=== PATIENT | female | born 1965 | race Caucasian/White ===

== ENCOUNTER → 2016-11-27 | Outpatient (CLI) | payer BC ==
--- NOTE | 2016-11-27 13:43 | RAD ---
HISTORY: Right knee pain. Complete three view series of the right knee joint. Comparisons: none. Findings: Examination of the right knee demonstrate no evidence for acute fracture, subluxation, or dislocation . The medial and lateral tibiofemoral compartments demonstrate mild joint space narrowing and margin al osteophyte formation. The findings are compatible with mild degenerative joint disease. The late ral radiograph fails to demonstrate significant joint effusion. Patellofemoral compartment shows mil d DJD and mild chondromalacia patella. IMPRESSION: Mild tricompartmental knee joint osteoarthritis, worse medially. Reported By:
== END | disposition home or self-care (01) | DRG 556 ==
LOC: RAD 09:41
PROVIDERS: ATTEND Nurse Practitioner Family
DX: M25.561 Pain in right knee (principal); M17.11 Unilateral primary osteoarthritis, right knee
CPT/HCPCS: 73564

== ENCOUNTER → 2016-12-09 | Outpatient (CLI) | payer BC ==
--- NOTE | 2016-12-10 08:09 | MRI ---
MRI right knee without contrast Indication: Right knee pain with limited range of motion Technique: Multisequence, multiplanar MR images of the right knee were obtained without IV contrast. Comparison: Radiograph November 27, 2016 Findings: Marrow signal is normal. No acute fracture or malalignment is identified. Small partial thi ckness cartilage fissures are scattered throughout the medial femorotibial compartment. The articular cartilage of the lateral femorotibial and patellofemoral compartments is intact without significant chondromalacia. No full-thickness cartilage defects are identified. There is a moderate sized suprapa tellar joint effusion. No loose intra-articular bodies or significant popliteal fossa cyst is identif ied. The anterior horn of the lateral meniscus is blunted and small in size, compatible with tear. There i s a large, posteriorly displaced meniscal fragment adjacent to the posterior root of the lateral meni scus (coronal image 23, series 701). The medial meniscus is intact. The ACL is intact but demonstrates moderate intermediate intrasubstance signal, compatible with mucoi d degeneration. There is a ganglion cyst associated with the proximal PCL, which is intact. The MCL, FCL, remaining posterior lateral ligamentous complex and extensor mechanism are unremarkable. Impression: 1. Horizontal cleavage tear of the anterior horn lateral meniscus with large, posteriorly displaced m eniscal fragment adjacent to the posterior root, as detailed above. 2. Moderate sized, likely reactive joint effusion. 3. Mild medial femorotibial compartment chondromalacia. 4. Mucoid ACL. Reported By:
== END | disposition home or self-care (01) | DRG 554 ==
LOC: RAD 15:06
PROVIDERS: ATTEND Nurse Practitioner Family
DX: M17.11 Unilateral primary osteoarthritis, right knee (principal); S83.281A Other tear of lateral meniscus, current injury, right knee, initial encounter; X58.XXXA Exposure to other specified factors, initial encounter; S83.512A Sprain of anterior cruciate ligament of left knee, initial encounter; M94.261 Chondromalacia, right knee
CPT/HCPCS: 73721

== ENCOUNTER 2019-12-24 19:56 | Inpatient (IN) ==
[2019-12-24] MEDS ORDERED: TUSSIONEX PENNKINETIC SUSP PO PRN (20:09)
[2019-12-24] MEDS: DUONEB 0.5 MG/3 MG (3 mL) NEB SCH (21:30)
[2019-12-24] MEDS: PULMICORT NEB TX 0.5 MG NEB SCH (21:30)
[2019-12-24] MEDS ORDERED: REMDESIVIR (INVESTIGATIONAL DRUG GS-5734) 200 MG in NS 250 ML IV 250 ML IV SCH (22:00)
[2019-12-24 22:06] LABS: BASOPHILS % (AUTO) 0.3 % (0.2-1.0); HEMATOCRIT 40.1 % (36.0-47.0); HEMOGLOBIN 13.7 g/dL (12.0-16.0); LYMPHOCYTES # (AUTO) 0.6 X10^3/uL (1.3-2.9); LYMPHOCYTES % (AUTO) 13.1 % (21.0-51.0); MEAN CORPUSCULAR HEMOGLOBIN 29.8 pg (27.0-34.0); MEAN CORPUSCULAR HGB CONC 34.1 g/dL (33.0-35.0); MEAN CORPUSCULAR VOLUME 87.4 fL (80.0-100.0); MEAN PLATELET VOLUME 8.9 fL (7.4-11.0); MONOCYTES # (AUTO) 0.1 x10^3/uL (0.3-0.8); MONOCYTES % (AUTO) 2.6 % (0.0-13.0); NEUTROPHILS # (AUTO) 3.9 x10^3/uL (2.2-4.8); PLATELET COUNT 196 X10^3/uL (150.0-450.0); RED BLOOD COUNT 4.59 X10^6/uL (3.5-5.4); RED CELL DISTRIBUTION WIDTH 14.6 % (11.6-16.5); WHITE BLOOD COUNT 4.7 X10^3/uL (3.6-10.0)
[2019-12-24 22:22] LABS: ALANINE AMINOTRANSFERASE 79 Units/L (12-78); ALBUMIN 3.4 g/dL (3.4-5.0); ALKALINE PHOSPHATASE 90 Units/L (46-116); ASPARTATE AMINO TRANSFERASE 23 Units/L (15-37); BLOOD UREA NITROGEN 15 mg/dL (7-18); CALCIUM 8.9 mg/dL (8.5-10.1); CARBON DIOXIDE 26.6 mmol/L (21-32); CHLORIDE 97 mmol/L (98-107); COR NA(FOR HYPERGLY) 140 mmol/L (136-145); CREATININE 0.93 mg/dL (0.55-1.02); SODIUM 135 mmol/L (136-145); TOTAL PROTEIN 8.1 g/dL (6.4-8.2); eGFR NON BLACK RACES > 60 (>60)
[2019-12-24] MEDS ORDERED: NS 1/2 1000 ML IV 1,000 ML IV ONE (23:10)
[2019-12-24] MEDS: NS 1/2 1000 ML IV 1,000 ML IV SCH (23:15)
[2019-12-24] MEDS: PROTONIX INJ 40 MG VIAL IVP SCH (23:15)
[2019-12-24] MEDS: VSL#3 PO SCH (23:15)
[2019-12-24] MEDS: ROBITUSSIN DM PO SCH (23:16)
[2019-12-24] MEDS: TUSSIONEX PENNKINETIC SUSP PO SCH (23:18)
[2019-12-24] MEDS: TESSALON PERLES PO SCH (23:19)
[2019-12-24] MEDS: SOLU-Medrol 40 MG VIAL IVP SCH (23:19)
[2019-12-25] MEDS: LEVAQUIN PREMIX IV 750 MG 750 MG/150 ML BAG IV SCH ×2 (00:12→22:30)
[2019-12-25] MEDS ORDERED: POTASSIUM CHLORIDE LIQ 20 MEQ UDC PO PRN (00:44)
[2019-12-25] MEDS ORDERED: POTASSIUM CHL 60 MEQ/NS 0.45% 500 ML IV PRN (00:44)
[2019-12-25] MEDS ORDERED: POTASSIUM CHL 40 MEQ/NS 0.45% 500 ML IV PRN (00:44)
[2019-12-25] MEDS ORDERED: K-RIDER 10 MEQ/NS 100 ML 10 MEQ/100 ML BAG IV PRN (00:44)
[2019-12-25 05:42] LABS: ABG BASE EXCESS 6.1 mmol/L (-2.0-2.0)
[2019-12-25 05:43] LABS: ABG ALLEN TEST POS; ABG HCO3 31.2 mmol/L (22-26)
[2019-12-25 06:15] LABS: BASOPHILS % (AUTO) 0.2 % (0.2-1.0); HEMOGLOBIN 12.5 g/dL (12.0-16.0); LYMPHOCYTES # (AUTO) 0.6 X10^3/uL (1.3-2.9); LYMPHOCYTES % (AUTO) 12.5 % (21.0-51.0); MEAN CORPUSCULAR HEMOGLOBIN 29.2 pg (27.0-34.0); MEAN CORPUSCULAR HGB CONC 32.9 g/dL (33.0-35.0); MEAN CORPUSCULAR VOLUME 88.7 fL (80.0-100.0); MEAN PLATELET VOLUME 9.5 fL (7.4-11.0); MONOCYTES # (AUTO) 0.1 x10^3/uL (0.3-0.8); MONOCYTES % (AUTO) 2.3 % (0.0-13.0); PLATELET COUNT 179 X10^3/uL (150.0-450.0); RED BLOOD COUNT 4.28 X10^6/uL (3.5-5.4); RED CELL DISTRIBUTION WIDTH 14.5 % (11.6-16.5); WHITE BLOOD COUNT 4.7 X10^3/uL (3.6-10.0)
[2019-12-25] MEDS: TESSALON PERLES PO SCH ×3 (06:28→22:30)
[2019-12-25] MEDS: SOLU-Medrol 40 MG VIAL IVP SCH ×3 (06:28→22:29)
[2019-12-25 06:43] LABS: ALANINE AMINOTRANSFERASE 71 Units/L (12-78); ALBUMIN 3.1 g/dL (3.4-5.0); ALKALINE PHOSPHATASE 80 Units/L (46-116); ASPARTATE AMINO TRANSFERASE 17 Units/L (15-37); BLOOD UREA NITROGEN 13 mg/dL (7-18); CALCIUM 8.8 mg/dL (8.5-10.1); CHLORIDE 99 mmol/L (98-107); COR CA(FOR HYPOALB) 9.5 mg/dL (8.5-10.1); COR NA(FOR HYPERGLY) 141 mmol/L (136-145); CREATININE 0.68 mg/dL (0.55-1.02); SODIUM 137 mmol/L (136-145); TOTAL PROTEIN 7.5 g/dL (6.4-8.2); eGFR NON BLACK RACES > 60 (>60)
--- NOTE | 2019-12-25 06:45 | RAD ---
HISTORYSOB, CovidSTUDYPortable AP [id number] heart size. Minimal basal infiltrates, left greater than right, again noted. No new consolidation, edema or pneumothorax seen.IMPRESSIONNo change. Basal infiltrates consistent with atypical pneumonia.Electronically signed by: IKER MONTOYA (Dec 25, 2019 06:45:10)
[2019-12-25] MEDS ORDERED: XANAX PO PRN (08:47)
[2019-12-25] MEDS ORDERED: ASPIRIN EC 81 MG PO SCH (09:00)
[2019-12-25] MEDS: DUONEB 0.5 MG/3 MG (3 mL) NEB SCH ×4 (09:20→21:01)
[2019-12-25] MEDS: PULMICORT NEB TX 0.5 MG NEB SCH ×2 (09:20→20:59)
[2019-12-25] MEDS: TOPROL XL PO SCH ×2 (09:44→21:00)
[2019-12-25] MEDS: ZYLOPRIM PO SCH (09:44)
[2019-12-25] MEDS: ROBITUSSIN DM PO SCH ×4 (09:44→20:58)
[2019-12-25] MEDS: PROTONIX INJ 40 MG VIAL IVP SCH ×2 (09:44→20:58)
[2019-12-25] MEDS: VSL#3 PO SCH (09:45)
[2019-12-25] MEDS: MICRO K EXTEN CAP 10 MEQ PO PRN (09:45)
[2019-12-25] MEDS: TUSSIONEX PENNKINETIC SUSP PO SCH ×2 (09:47→21:00)
[2019-12-25] MEDS: HYZAAR 50/12.5 MG PO SCH ×2 (09:56→20:56)
[2019-12-25] MEDS: OLOPATADINE SCH ×2 (10:55→20:57)
--- NOTE | 2019-12-25 11:18 | PCM.PROG ---
Progress Note Progress Note for Day of Date of Exam: 12/25/19 Subjective Subjective: Patient seen at bedside, reports doing better. No overnight events. She is currently on 2L NC and states her breathing is better. She is currently admitted for COVID-19 infection associated with acute respiratory failure. She denies fever or chills, no N/V/D or abdominal pain. She has been ambulating to the bathroom. Labs: Hgb 12.5 K:3.4 BUN/Cr: 13/0.68 Glucose: 285 AST/ALT: 17/ AB.44/46/110/31 CRP: 62 CXR: basal infiltrates concerning for atypical pna Plan: continue current treatment with solumedrol, Remdesivir and Levaquin. Will resume home medications, replace K as per protocol. Patient will be getting plasma this morning. Continue gentle hydration. Will add SSI coverage for hyperglycemia. Continue pulmonary toilet with IS, duonebs and pulmicort. Monitor AM labs. Past Medical Family Social History Past Med/Fam/Surg Hx: No changes since H&P Allergies: Allergies Penicillins Allergy (Verified 12/24/19 21:21) Review of Systems ROS: No change since H&P Vital Signs and I&O's Vital Signs: Temperature 98.0 F Pulse Rate 83 Respiratory Rate 18 Blood Pressure 126/72 O2 Sat by Pulse Oximetry 100 Intake and Output: Intake & Output 12/22/19 12/23/19 12/24/19 12/25/19 23:59 23:59 23:59 23:59 Intake Total 462 / 462 768 / 768 Output Total 0 / 0 Balance 462 / 462 768 / 768 Physical Exam Oriented: Normal Eyes: Normal Ear: Normal Nose: Normal Respiratory: Generalized and Diminished Cardiovascular: Normal Auscultation: Bowel Sounds: Normal Palpation: Normal Tenderness: Normal Skin: Normal Musculoskeletal: Normal Psychiatric: Normal Mood Description: Calm Affect: Normal Speech Pattern: Clear and Appropriate Laboratory and Diagnostics Result Diagrams: 12/25/19 04:40 12/25/19 04:40 Labs: Laboratory WBC 4.7 X10^3/uL (3.6-10.0) 12/25/19 04:40 RBC 4.28 X10^6/uL (3.5-5.4) 12/25/19 04:40 Hgb 12.5 g/dL (12.0-16.0) 12/25/19 04:40 Hct 38.0 % (36.0-47.0) 12/25/19 04:40 MCV 88.7 fL (80.0-100.0) 12/25/19 04:40 MCH 29.2 pg (27.0-34.0) 12/25/19 04:40 MCHC 32.9 g/dL (33.0-35.0) L 12/25/19 04:40 RDW 14.5 % (11.6-16.5) 12/25/19 04:40 Plt Count 179 X10^3/uL (150.0-450.0) 12/25/19 04:40 MPV 9.5 fL (7.4-11.0) 12/25/19 04:40 Neut % (Auto) 85.0 % (42.0-75.0) H 12/25/19 04:40 Lymph % (Auto) 12.5 % (21.0-51.0) L 12/25/19 04:40 [place] % (Auto) 2.3 % (0.0-13.0) 12/25/19 04:40 Eos % (Auto) 0.0 % (0.9-2.9) L 12/25/19 04:40 Baso % (Auto) 0.2 % (0.2-1.0) 12/25/19 04:40 Neut # (Auto) 4.0 x10^3/uL (2.2-4.8) 12/25/19 04:40 Lymph # (Auto) 0.6 X10^3/uL (1.3-2.9) L 12/25/19 04:40 [place] # (Auto) 0.1 x10^3/uL (0.3-0.8) L 12/25/19 04:40 Eos # (Auto) 0.0 x10^3/uL (0.0-0.2) 12/25/19 04:40 Baso # (Auto) 0.0 X10^3/uL (0.0-0.1) 12/25/19 04:40 Absolute Nucleated RBC 0.1 /100WBC 12/25/19 04:40 Sample Site Lr 12/25/19 05:35 ABG pH 7.440 (7.35-7.45) 12/25/19 05:35 ABG pCO2 46.0 mmHg (35.0-45.0) H 12/25/19 05:35 ABG pO2 111.0 mmHg (80.0-100.0) H 12/25/19 05:35 ABG HCO3 31.2 mmol/L (22-26) H* 12/25/19 05:35 ABG O2 Saturation 99.0 % (90-100) 12/25/19 05:35 ABG Base Excess 6.1 mmol/L (-2.0-2.0) H 12/25/19 05:35 Fausto Test Pos 12/25/19 05:35 A-a Gradient 31.0 mmHg 12/25/19 05:35 FiO2 28.0 12/25/19 05:35 Blood Gas Comments Pt [facility] 12/25/19 05:35 Sodium 137 mmol/L (136-145) 12/25/19 04:40 Corrected Sodium 141 mmol/L (136-145) 12/25/19 04:40 Potassium 3.4 mmol/L (3.5-5.1) L 12/25/19 04:40 Chloride 99 mmol/L (98-107) 12/25/19 04:40 Carbon Dioxide 27.0 mmol/L (21-32) 12/25/19 04:40 BUN 13 mg/dL (7-18) 12/25/19 04:40 Creatinine 0.68 mg/dL (0.55-1.02) 12/25/19 04:40 Est GFR (MDRD) Af Amer > 60 (>60) 12/25/19 04:40 Est GFR (MDRD) Non-Af > 60 (>60) 12/25/19 04:40 Glucose 285 mg/dL (65-99) H 12/25/19 04:40 Calcium 8.8 mg/dL (8.5-10.1) 12/25/19 04:40 Corrected Calcium 9.5 mg/dL (8.5-10.1) 12/25/19 04:40 Magnesium 2.2 mg/dL (1.7-2.9) 12/24/19 21:42 Ferritin 208 ng/mL (8-252) 12/25/19 04:40 Total Bilirubin 0.40 mg/dL (0.2-1.0) 12/25/19 04:40 AST 17 Units/L (15-37) 12/25/19 04:40 ALT 71 Units/L (12-78) 12/25/19 04:40 Alkaline Phosphatase 80 Units/L (46-116) 12/25/19 04:40 C-Reactive Protein 62.60 mg/L (0-3.0) H 12/25/19 04:40 Total Protein 7.5 g/dL (6.4-8.2) 12/25/19 04:40 Albumin 3.1 g/dL (3.4-5.0) L 12/25/19 04:40 Globulin 4.4 g/dL (2.5-4.5) 12/25/19 04:40 Albumin/Globulin Ratio 0.7 Ratio (1.1-2.1) L 12/25/19 04:40 Blood Type O POSITIVE 12/24/19 21:42 Plan (1) COVID-19: Status: Acute (2) Acute respiratory failure due to COVID-19: Status: Acute (3) Hypokalemia: Status: Acute (4) HTN (hypertension): Status: Acute Qualifiers: Hypertension type: essential hypertension Qualified Code(s): I10 - Essential (primary) hypertension (5) Hyperglycemia: Status: Acute
[2019-12-25] MEDS: HumuLIN R SC PRN ×2 (13:00→21:01)
[2019-12-25] MEDS ORDERED: NS 250 ML IV 250 ML IV ONE ×2 (15:15→18:08)
[2019-12-25] MEDS: NS 1/2 1000 ML IV 1,000 ML IV SCH (19:56)
[2019-12-25] MEDS ORDERED: NS 1/2 1000 ML IV 1,000 ML IV ONE (20:45)
[2019-12-26 05:09] LABS: BASOPHILS % (AUTO) 0.2 % (0.2-1.0); HEMATOCRIT 38.3 % (36.0-47.0); HEMOGLOBIN 12.8 g/dL (12.0-16.0); LYMPHOCYTES # (AUTO) 0.7 X10^3/uL (1.3-2.9); LYMPHOCYTES % (AUTO) 5.8 % (21.0-51.0); MEAN CORPUSCULAR HEMOGLOBIN 29.4 pg (27.0-34.0); MEAN CORPUSCULAR HGB CONC 33.4 g/dL (33.0-35.0); MEAN CORPUSCULAR VOLUME 87.9 fL (80.0-100.0); MEAN PLATELET VOLUME 8.8 fL (7.4-11.0); MONOCYTES # (AUTO) 0.3 x10^3/uL (0.3-0.8); MONOCYTES % (AUTO) 2.8 % (0.0-13.0); NEUTROPHILS # (AUTO) 10.9 x10^3/uL (2.2-4.8); NEUTROPHILS % (AUTO) 91.2 % (42.0-75.0); PLATELET COUNT 226 X10^3/uL (150.0-450.0); RED BLOOD COUNT 4.36 X10^6/uL (3.5-5.4); RED CELL DISTRIBUTION WIDTH 14.7 % (11.6-16.5); WHITE BLOOD COUNT 11.9 X10^3/uL (3.6-10.0)
[2019-12-26 05:31] LABS: ALANINE AMINOTRANSFERASE 52 Units/L (12-78); ALBUMIN 3.1 g/dL (3.4-5.0); ALKALINE PHOSPHATASE 76 Units/L (46-116); ASPARTATE AMINO TRANSFERASE 14 Units/L (15-37); BLOOD UREA NITROGEN 11 mg/dL (7-18); CALCIUM 8.8 mg/dL (8.5-10.1); CHLORIDE 98 mmol/L (98-107); COR CA(FOR HYPOALB) 9.5 mg/dL (8.5-10.1); COR NA(FOR HYPERGLY) 139 mmol/L (136-145); SODIUM 137 mmol/L (136-145); TOTAL PROTEIN 7.6 g/dL (6.4-8.2); eGFR NON BLACK RACES > 60 (>60)
[2019-12-26] MEDS: TESSALON PERLES PO SCH ×3 (06:31→21:50)
[2019-12-26] MEDS: SOLU-Medrol 40 MG VIAL IVP SCH ×3 (06:31→21:49)
[2019-12-26] MEDS: NS 1/2 1000 ML IV 1,000 ML IV SCH ×3 (06:31→16:20)
[2019-12-26] MEDS: K-DUR TAB 20 MEQ PO PRN (06:33)
--- NOTE | 2019-12-26 06:48 | RAD ---
HISTORYSOBSTUDYCHEST, 1 [id number] trachea is midline. The cardiac silhouette is mildly enlarged.. The left lung is clear. There is artifact overlying the right cecilia thorax. No pleural effusion or pneumothorax.. The bony thorax is unremarkable.IMPRESSIONLimited radiographic evaluation of the chest. No significant change from previous 12/25/2019Electronically signed by: Domingo Tong (Dec 26, 2019 06:48:22)
[2019-12-26 07:18] LABS: BAND NEUTROPHILS % 3 % (0-10); PLATELET MORPHOLOGY COMMENT NORMAL (NORMAL)
[2019-12-26] MEDS: PULMICORT NEB TX 0.5 MG NEB SCH ×2 (09:10→21:30)
[2019-12-26] MEDS: DUONEB 0.5 MG/3 MG (3 mL) NEB SCH ×4 (09:10→21:30)
[2019-12-26] MEDS: OLOPATADINE SCH ×2 (09:46→20:33)
[2019-12-26] MEDS: HYZAAR 50/12.5 MG PO SCH ×2 (09:46→20:33)
[2019-12-26] MEDS: ZYLOPRIM PO SCH (09:46)
[2019-12-26] MEDS: ROBITUSSIN DM PO SCH ×4 (09:46→20:34)
[2019-12-26] MEDS: PROTONIX INJ 40 MG VIAL IVP SCH ×2 (09:46→20:34)
[2019-12-26] MEDS: TUSSIONEX PENNKINETIC SUSP PO SCH ×2 (09:47→20:36)
[2019-12-26] MEDS: REMDESIVIR (INVESTIGATIONAL DRUG GS-5734) 100 MG in NS 250 ML IV 250 ML IV SCH (09:47)
[2019-12-26] MEDS: TOPROL XL PO SCH ×2 (09:47→20:35)
[2019-12-26] MEDS: VSL#3 PO SCH (09:47)
--- NOTE | 2019-12-26 10:27 | PCM.PROG ---
Progress Note Progress Note for Day of Date of Exam: 12/26/19 Subjective Subjective: Patient seen at bedside, no acute events overnight. Patient states she feels better today. She is currently on 2L NC. She reports mild cough. Denies fever or chills. Denies N/V/D or abdominal pain. She did receive plasma treatment yesterday. Labs: WBC 11.9 Hgb 12.8 CRP: 50 CXR: basal infiltrates, no acute change Plan: continue solumedrol, remdesivir and levaquin. Wean O2 as tolerated, continue aggressive pulmonary toilet with IS, duonebs and pulmicort. Add Lovenox for DVT ppx. Monitor AM labs. Past Medical Family Social History Past Med/Fam/Surg Hx: No changes since H&P Allergies: Allergies Penicillins Allergy (Verified 12/24/19 21:21) Review of Systems ROS: No change since H&P Vital Signs and I&O's Vital Signs: Temperature 98.3 F Pulse Rate 79 Respiratory Rate 22 Blood Pressure 129/65 O2 Sat by Pulse Oximetry 96 Intake and Output: Intake & Output 12/23/19 12/24/19 12/25/19 12/26/19 23:59 23:59 23:59 23:59 Intake Total 462 / 462 3600 / 3600 653 / 653 Output Total 0 / 0 Balance 462 / 462 3600 / 3600 653 / 653 Physical Exam Oriented: Normal Eyes: Normal Ear: Normal Nose: Normal Respiratory: Generalized and Diminished Cardiovascular: Normal Auscultation: Bowel Sounds: Normal Tenderness: Normal Skin: Normal Musculoskeletal: Normal Psychiatric: Normal Mood Description: Calm Affect: Normal Speech Pattern: Clear and Appropriate Laboratory and Diagnostics Result Diagrams: 12/26/19 04:35 12/26/19 04:35 Labs: Laboratory WBC 11.9 X10^3/uL (3.6-10.0) H 12/26/19 04:35 RBC 4.36 X10^6/uL (3.5-5.4) 12/26/19 04:35 Hgb 12.8 g/dL (12.0-16.0) 12/26/19 04:35 Hct 38.3 % (36.0-47.0) 12/26/19 04:35 MCV 87.9 fL (80.0-100.0) 12/26/19 04:35 MCH 29.4 pg (27.0-34.0) 12/26/19 04:35 MCHC 33.4 g/dL (33.0-35.0) 12/26/19 04:35 RDW 14.7 % (11.6-16.5) 12/26/19 04:35 Plt Count 226 X10^3/uL (150.0-450.0) 12/26/19 04:35 Plt Count Comment Adequate (ADEQUATE) 12/26/19 04:35 MPV 8.8 fL (7.4-11.0) 12/26/19 04:35 Neut % (Auto) 91.2 % (42.0-75.0) H 12/26/19 04:35 Lymph % (Auto) 5.8 % (21.0-51.0) L 12/26/19 04:35 [place] % (Auto) 2.8 % (0.0-13.0) 12/26/19 04:35 Eos % (Auto) 0.0 % (0.9-2.9) L 12/26/19 04:35 Baso % (Auto) 0.2 % (0.2-1.0) 12/26/19 04:35 Neut # (Auto) 10.9 x10^3/uL (2.2-4.8) H 12/26/19 04:35 Lymph # (Auto) 0.7 X10^3/uL (1.3-2.9) L 12/26/19 04:35 [place] # (Auto) 0.3 x10^3/uL (0.3-0.8) 12/26/19 04:35 Eos # (Auto) 0.0 x10^3/uL (0.0-0.2) 12/26/19 04:35 Baso # (Auto) 0.0 X10^3/uL (0.0-0.1) 12/26/19 04:35 Absolute Nucleated RBC 0.0 /100WBC 12/26/19 04:35 Total Counted 100 12/26/19 04:35 Neutrophils % (Manual) 92 % (39-76) H 12/26/19 04:35 Band Neutrophils % 3 % (0-10) 12/26/19 04:35 Lymphocytes % (Manual) 4 % (13-43) L 12/26/19 04:35 Monocytes % (Manual) 1 % (4-9) L 12/26/19 04:35 Plt Morphology Comment Normal (NORMAL) 12/26/19 04:35 RBC Morphology Normal (NORMAL) 12/26/19 04:35 Sample Site Lr 12/25/19 05:35 ABG pH 7.440 (7.35-7.45) 12/25/19 05:35 ABG pCO2 46.0 mmHg (35.0-45.0) H 12/25/19 05:35 ABG pO2 111.0 mmHg (80.0-100.0) H 12/25/19 05:35 ABG HCO3 31.2 mmol/L (22-26) H* 12/25/19 05:35 ABG O2 Saturation 99.0 % (90-100) 12/25/19 05:35 ABG Base Excess 6.1 mmol/L (-2.0-2.0) H 12/25/19 05:35 Fausto Test Pos 12/25/19 05:35 A-a Gradient 31.0 mmHg 12/25/19 05:35 FiO2 28.0 12/25/19 05:35 Blood Gas Comments Pt [facility] 12/25/19 05:35 Sodium 137 mmol/L (136-145) 12/26/19 04:35 Corrected Sodium 139 mmol/L (136-145) 12/26/19 04:35 Potassium 3.5 mmol/L (3.5-5.1) 12/26/19 04:35 Chloride 98 mmol/L (98-107) 12/26/19 04:35 Carbon Dioxide 30.0 mmol/L (21-32) 12/26/19 04:35 BUN 11 mg/dL (7-18) 12/26/19 04:35 Creatinine 0.90 mg/dL (0.55-1.02) 12/26/19 04:35 Est GFR (MDRD) Af Amer > 60 (>60) 12/26/19 04:35 Est GFR (MDRD) Non-Af > 60 (>60) 12/26/19 04:35 Glucose 198 mg/dL (65-99) H 12/26/19 04:35 POC Glucose (mg/dL) 175 mg/dL (65-99) H 12/26/19 05:06 Calcium 8.8 mg/dL (8.5-10.1) 12/26/19 04:35 Corrected Calcium 9.5 mg/dL (8.5-10.1) 12/26/19 04:35 Magnesium 2.2 mg/dL (1.7-2.9) 12/24/19 21:42 Ferritin 243 ng/mL (8-252) 12/26/19 04:35 Total Bilirubin 0.40 mg/dL (0.2-1.0) 12/26/19 04:35 AST 14 Units/L (15-37) L 12/26/19 04:35 ALT 52 Units/L (12-78) 12/26/19 04:35 Alkaline Phosphatase 76 Units/L (46-116) 12/26/19 04:35 C-Reactive Protein 50.80 mg/L (0-3.0) H 12/26/19 04:35 Total Protein 7.6 g/dL (6.4-8.2) 12/26/19 04:35 Albumin 3.1 g/dL (3.4-5.0) L 12/26/19 04:35 Globulin 4.5 g/dL (2.5-4.5) 12/26/19 04:35 Albumin/Globulin Ratio 0.7 Ratio (1.1-2.1) L 12/26/19 04:35 Blood Type O POSITIVE 12/24/19 21:42 Plan (1) COVID-19: Status: Acute (2) Acute respiratory failure due to COVID-19: Status: Acute (3) Hypokalemia: Status: Acute (4) HTN (hypertension): Status: Acute Qualifiers: Hypertension type: essential hypertension Qualified Code(s): I10 - Essential (primary) hypertension (5) Hyperglycemia: Status: Acute
[2019-12-26] MEDS: ASPIRIN 81 MG CHEWTAB PO SCH (10:49)
[2019-12-26] MEDS: LOVENOX INJ 40 MG SYR SC SCH (12:10)
[2019-12-26] MEDS: HumuLIN R SC PRN ×3 (13:41→20:48)
[2019-12-26] MEDS ORDERED: NS 1/2 1000 ML IV 1,000 ML IV ONE (16:16)
[2019-12-26] MEDS: LEVAQUIN PREMIX IV 750 MG 750 MG/150 ML BAG IV SCH (22:21)
[2019-12-27 05:13] LABS: BASOPHILS % (AUTO) 0.2 % (0.2-1.0); HEMATOCRIT 36.5 % (36.0-47.0); HEMOGLOBIN 12.2 g/dL (12.0-16.0); LYMPHOCYTES # (AUTO) 0.6 X10^3/uL (1.3-2.9); LYMPHOCYTES % (AUTO) 6.4 % (21.0-51.0); MEAN CORPUSCULAR HEMOGLOBIN 29.6 pg (27.0-34.0); MEAN CORPUSCULAR HGB CONC 33.6 g/dL (33.0-35.0); MEAN CORPUSCULAR VOLUME 88.4 fL (80.0-100.0); MEAN PLATELET VOLUME 9.3 fL (7.4-11.0); MONOCYTES # (AUTO) 0.3 x10^3/uL (0.3-0.8); MONOCYTES % (AUTO) 3.5 % (0.0-13.0); NEUTROPHILS # (AUTO) 8.8 x10^3/uL (2.2-4.8); NEUTROPHILS % (AUTO) 89.9 % (42.0-75.0); PLATELET COUNT 220 X10^3/uL (150.0-450.0); RED BLOOD COUNT 4.13 X10^6/uL (3.5-5.4); RED CELL DISTRIBUTION WIDTH 15.3 % (11.6-16.5); WHITE BLOOD COUNT 9.8 X10^3/uL (3.6-10.0)
[2019-12-27 05:28] LABS: ALANINE AMINOTRANSFERASE 52 Units/L (12-78); ALBUMIN 2.6 g/dL (3.4-5.0); ALKALINE PHOSPHATASE 68 Units/L (46-116); ASPARTATE AMINO TRANSFERASE 17 Units/L (15-37); BLOOD UREA NITROGEN 16 mg/dL (7-18); CALCIUM 8.3 mg/dL (8.5-10.1); CHLORIDE 97 mmol/L (98-107); COR CA(FOR HYPOALB) 9.4 mg/dL (8.5-10.1); COR NA(FOR HYPERGLY) 138 mmol/L (136-145); CREATININE 0.82 mg/dL (0.55-1.02); SODIUM 135 mmol/L (136-145); eGFR NON BLACK RACES > 60 (>60)
[2019-12-27] MEDS: NS 1/2 1000 ML IV 1,000 ML IV SCH (05:34)
[2019-12-27] MEDS: TESSALON PERLES PO SCH ×3 (05:35→21:30)
[2019-12-27] MEDS: SOLU-Medrol 40 MG VIAL IVP SCH ×3 (05:35→21:30)
[2019-12-27] MEDS: HumuLIN R SC PRN ×4 (05:36→21:30)
--- NOTE | 2019-12-27 06:06 | RAD ---
HISTORYSOBSTUDYCHEST, 1 VIEWCOMPARISONOne day priorTECHNIQUEAP view of the chestFINDINGSCardiac and mediastinal contours are stable. The cardiac silhouette is enlarged. Low lung volumes. Bilateral scattered airspace and interstitial opacities. No definite pleural effusion or pneumothorax.IMPRESSIONCardiomegaly with bilateral airspace and interstitial opacities can be seen with pulmonary edema and pneumonia.Electronically signed by: Martínez Lomas (Dec 27, 2019 06:06:44)
[2019-12-27] MEDS: HYZAAR 50/12.5 MG PO SCH ×2 (09:07→21:30)
[2019-12-27] MEDS: ASPIRIN 81 MG CHEWTAB PO SCH (09:07)
[2019-12-27] MEDS: ROBITUSSIN DM PO SCH ×4 (09:08→21:30)
[2019-12-27] MEDS: REMDESIVIR (INVESTIGATIONAL DRUG GS-5734) 100 MG in NS 250 ML IV 250 ML IV SCH (09:08)
[2019-12-27] MEDS: PROTONIX INJ 40 MG VIAL IVP SCH ×2 (09:08→21:30)
[2019-12-27] MEDS: ZYLOPRIM PO SCH (09:10)
[2019-12-27] MEDS: TOPROL XL PO SCH ×2 (09:11→21:30)
[2019-12-27] MEDS: VSL#3 PO SCH (09:11)
[2019-12-27] MEDS: TUSSIONEX PENNKINETIC SUSP PO SCH ×2 (09:11→21:30)
[2019-12-27] MEDS: LOVENOX INJ 40 MG SYR SC SCH (09:12)
[2019-12-27] MEDS: PULMICORT NEB TX 0.5 MG NEB SCH ×2 (09:15→21:13)
[2019-12-27] MEDS: DUONEB 0.5 MG/3 MG (3 mL) NEB SCH ×4 (09:15→21:13)
[2019-12-27] MEDS: OLOPATADINE SCH ×2 (09:32→21:30)
--- NOTE | 2019-12-27 11:16 | DR.H&P ---
H&P - History & Physical for Day of: H&P Date: 12/24/19 - Chief Complaint Chief Complaint: COUGH, SOB, FEVER - History of Present Illness History of Present Illness: IS A 54 YEAR OLD PATIENT OF [facility]. PAT CONSULTED US FOR ADMISSION. PATIENT PRESENTED TO THE HOSPITAL A DIRECT ADMISSION DUE TO COMPLAINTS OF PERSISTENT COUGH, SHORTNESS OF BREATH, AND FEVER. SYMPTOMS STARTED ABOUT A WEEK AGO AND HAVE PROGRESSIVELY GOTTEN WORSE. PATIENT DID TEST POSITIVE FOR COVID-19 ON 12/20/19. SHE WAS PRESCRIBED AZITHROMYCIN 250MG PO DAILY X 5 DAYS, LEVAQUIN 500MG PO DAILY X 10 DAYS, A MEDROL DOSEPACK, HYDROXYCHLOROQUIN 200MG PO BID X 10 DAYS, BUDESONIDE NEB TX, XOPENEX NEB TX, AND COUGH MEDICATION ON 12/19. SHE ADMITS TO COMPLIANCE WITH MEDICATIONS, BUT DENIES IMPROVEMENT IN SYMPTOMS. HER PMH INCLUDES: HYPERTENSION, ARTHRITIS, ANXIETY, CHOLECYSTECTOMY, AND BILATERAL BREAST REDUCTION. AUSCULTATION OF LUNG [place] REVEALED SCATTERED WHEEZING THROUGHOUT. ON ARRIVAL, HER VITALS WERE 98.0-80-22-97%RA-139/71. LABS WERE OBTAINED. ABNORMAL LAB VALUES INCLUDE THE FOLLOWING: SODIUM 135, POTASSIUM 3.3, CHLORIDE 97, GLUCOSE 298, ALT 79, GLOBULIN 4.7. ABG WAS OBTAINED AND REVEALED: PH 7.440, PC02 46, P02 111, HC03 31.2, 02 SAT 99, BASE EXCESS 6.1, FI02 28.0. BLOOD CULTURES WERE SET UP. A CHEST XRAY WAS OBTAINED AND REVEALED: Stable heart size. Minimal basal infiltrates, left greater than right, again noted. No new consolidation, edema or pneumothorax seen. WE STARTED REMDESIVIR 200MG IV X 1, THEN 100MG IV DAILY, LEVAQUIN 750MG IV DAILY, 1/2NS AT 75 ML/HR, SOLU-MEDROL 80MG IV Q8H, DUONEBS QID, PULMICORT NEBS BID, TUSSIONEX 5ML PO Q12H, ROBITUSSIN DM 10 ML PO QID, THE POTASSIUM AND MAGNESIUM PROTOCOLS, HUMULIN R SLIDING SCALE, AND HER HOME MEDICATIONS WERE RESUMED FOR TREATMENT OF PNEUMONIA DUE TO COVID-19. OTHERWISE, WE PLAN TO FOLLOW UP WITH AM LABS, CHEST XRAY, AND CONTINUE TO MONITOR. TIME SPENT ON ASSESSMENT, REVIEWING LABS AND IMAGING, DECISION MAKING, AND DOCUMENTATION WAS GREATER THAN 74 MINUTES. - Past Medical History Past Medical History: Anxiety, Arthritis, Hypertension - Past Surgical History Surgical History: Cholecystectomy, Other Additional Surgical History: BREAST REDUCTION - Family History Family Medical History: Cancer, Coronary Artery Disease, Hypertension - Social History Does patient currently use any type of tobacco product: No Have you used tobacco products in the last 12 months: No Type of Tobacco Use: None Does any household member use tobacco: No Alcohol Use: None Drug Use: None - Medications Home Medications: Penicillins Allergy (Verified 12/24/19 21:21) CONTINUE taking the following medications acetaminophen [Acetaminophen Extra Strength] 1,000 mg PO Q6H PRN 12/24/19 [History] allopurinol 100 mg PO DAILY 12/24/19 [History] alprazolam 1 mg PO BID PRN 12/24/19 [History] aspirin [Aspirin Low Dose] 162 mg PO DAILY 12/24/19 [History] ixknkzrxej-oolitekjucbqs-yirj 1 tab PO Q6H PRN 12/24/19 [History] hydrochlorothiazide 25 mg PO QAM PRN 12/24/19 [History] hydroxychloroquine 200 mg PO BID 12/24/19 [History] levofloxacin 500 mg PO Q24H 12/24/19 [History] losartan-hydrochlorothiazide 1 tab PO BID 12/24/19 [History] methylprednisolone 0 mg PO PER PKG DIR 12/24/19 [History] metoprolol succinate 25 mg PO BID 12/24/19 [History] olopatadine 2 spray INTRANASAL BID 12/24/19 [History] potassium chloride 10 meq PO BID 12/24/19 [History] - Review of Systems Constitutional: Fever, Weakness Eyes: No Symptoms Reported ENT: No Symptoms Reported Respiratory: See HPI, Cough, Dry, Shortness of Breath, SOB with Excertion, Wheezing Cardiovascular: No Symptoms Reported Gastrointestinal: No Symptoms Reported Genitourinary: No Symptoms Reported Musculoskeletal: No Symptoms Reported Skin: No Symptoms Reported Neurological: Weakness - Physical Exam Vital Signs: Temperature 98.1 F Pulse Rate 74 Respiratory Rate 22 Blood Pressure 149/80 O2 Sat by Pulse Oximetry 91 Oriented: Normal Eyes: Normal Ear: Normal Nose: Normal Throat: Normal Respiratory: Wheezes Throughout Cardiovascular: Normal : Normal Auscultation: Bowel Sounds: Normal Palpation: Normal Tenderness: Normal Skin: Normal Musculoskeletal: Normal Psychiatric: Normal Mood Description: Calm Affect: Normal Speech Pattern: Clear - Assessment/Plan (1) Pneumonia due to 2019 novel coronavirus Status: Acute Plan: ADMIT, SUPPLEMENTAL OXYGEN, REMDESIVIR 200MG IV X 1, THEN 100MG IV DAILY, LEVAQUIN 750MG IV DAILY, 1/2NS AT 75 ML/HR, SOLU-MEDROL 80MG IV Q8H, DUONEBS QID, PULMICORT NEBS BID, TUSSIONEX 5ML PO Q12H, ROBITUSSIN DM 10 ML PO QID, THE POTASSIUM AND MAGNESIUM PROTOCOLS, HUMULIN R SLIDING SCALE, AND HER HOME MEDICATIONS WERE RESUMED (2) COVID-19 Status: Acute (3) Hyperglycemia Status: Acute (4) Hypokalemia Status: Acute (5) HTN (hypertension) Qualifiers: Hypertension type: essential hypertension Status: Chronic - Allergies Allergies/Adverse Reactions: Allergies Allergy/AdvReac Type Severity Reaction Status Date / Time Penicillins Allergy Verified 12/24/19 21:21
[2019-12-27] MEDS: MILK OF MAGNESIA PO SCH (11:30)
--- NOTE | 2019-12-27 12:20 | PCM.PROG ---
Progress Note - Progress Note for Day of Date of Exam: 12/27/19 - Subjective Subjective: IS BEING TREATED FOR PNEUMONIA DUE TO COVID-19. TODAY, SHE IS ALERT AND ORIENTED, LYING IN BED ON MORNING ROUNDS. SHE CONTINUES WITH COMPLAINTS OF COUGH AND SHORTNESS OF BREATH TODAY. SHE REPORTS THAT SHORTNESS OF BREATH SEEMS WORSE THIS MORNING COMPARED TO PREVIOUS DAYS. SHE STATES, I FEEL LIKE I AM FULL OF FLUID. SHE IS CURRENTLY UTILIZING OXYGEN VIA NASAL CANNULA AT 2L/MIN. ON EXAMINATION, HEART IS REGULAR IN RATE AND RHYTHM. BILATERAL LUNGS ARE NOTED WITH SCATTERED WHEEZING THROUGHOUT. ABDOMEN IS ROUND, SOFT, AND NON-TENDER WITH NORMAL BOWEL SOUNDS NOTED IN ALL QUADRANTS. HER VITALS THIS MORNING ARE: 98.7-74-22-91%NC-149/80. LABS WERE OBTAINED. ABNORMAL LAB VALUES INCLUDE THE FOLLOWING: SODIUM 135, POTASSIUM 3.2, CHLORIDE 97, GLUCOSE 212, CALCIUM 8.3, FERRITIN 257, CRP 54.90, ALBUMIN 2.6. BLOOD CULTURES ARE PENDING. A CHEST XRAY WAS OBTAINED AND REVEALED: Cardiomegaly with bilateral airspace and interstitial opacities can be seen with pulmonary edema and pneumonia. SHE IS CURRENTLY RECEIVING REMDESIVIR 100MG IV DAILY, LEVAQUIN 750MG IV DAILY, 1/2NS AT 75 ML/HR, SOLU-MEDROL 80MG IV Q8H, DUONEBS QID, PULMICORT NEBS BID, TUSSIONEX 5ML PO Q12H, ROBITUSSIN DM 10 ML PO QID, THE POTASSIUM AND MAGNESIUM PROTOCOLS, HUMULIN R SLIDING SCALE, AND HER HOME MEDICATIONS WERE RESUMED. SHE HAS RECEIVED ONE UNIT OF CONVALESCENT PLASMA AND WILL RECEIVE ANOTHER WHEN IT IS AVAILABLE. TODAY, WE WILL ADMINISTER LASIX 40MG IV X 2 DOSES. OTHERWISE, WE WILL CONTINUE WITH [facility] PLAN OF CARE. WE PLAN TO FOLLOW UP WITH AM LABS, CHEST XRAY, ABG, AND CONTINUE TO MONITOR. - Past Medical Family Social History Past Med/Fam/Surg Hx: No changes since H&P Allergies: Allergies Penicillins Allergy (Verified 12/24/19 21:21) - Review of Systems ROS: No change since H&P - Vital Signs and I&O's Vital Signs: Temperature 98.1 F Pulse Rate 74 Respiratory Rate 22 Blood Pressure 149/80 O2 Sat by Pulse Oximetry 91 Intake and Output: Intake & Output 12/25/19 12/26/19 12/27/19 12/28/19 11:59 11:59 11:59 11:59 Intake Total 1230 / 1230 3485 / 3485 4167 / 4167 Output Total 0 / 0 Balance 1230 / 1230 3485 / 3485 4167 / 4167 - Physical Exam Oriented: Normal Eyes: Normal Ear: Normal Nose: Normal Throat: Normal Respiratory: Generalized, Diminished Cardiovascular: Normal : Normal Auscultation: Bowel Sounds: Normal Palpation: Normal Tenderness: Normal Skin: Normal Musculoskeletal: Normal Psychiatric: Normal Mood Description: Calm Affect: Normal Speech Pattern: Clear - Laboratory and Diagnostics Result Diagrams: 12/27/19 04:35 12/27/19 04:35 Labs: 12/24/19 21:38 Blood Blood Culture - Preliminary 12/24/19 21:42 Blood Blood Culture - Preliminary Laboratory WBC 9.8 X10^3/uL (3.6-10.0) 12/27/19 04:35 RBC 4.13 X10^6/uL (3.5-5.4) 12/27/19 04:35 Hgb 12.2 g/dL (12.0-16.0) 12/27/19 04:35 Hct 36.5 % (36.0-47.0) 12/27/19 04:35 MCV 88.4 fL (80.0-100.0) 12/27/19 04:35 MCH 29.6 pg (27.0-34.0) 12/27/19 04:35 MCHC 33.6 g/dL (33.0-35.0) 12/27/19 04:35 RDW 15.3 % (11.6-16.5) 12/27/19 04:35 Plt Count 220 X10^3/uL (150.0-450.0) 12/27/19 04:35 Plt Count Comment Adequate (ADEQUATE) 12/26/19 04:35 MPV 9.3 fL (7.4-11.0) 12/27/19 04:35 Neut % (Auto) 89.9 % (42.0-75.0) H 12/27/19 04:35 Lymph % (Auto) 6.4 % (21.0-51.0) L 12/27/19 04:35 Izard % (Auto) 3.5 % (0.0-13.0) 12/27/19 04:35 Eos % (Auto) 0.0 % (0.9-2.9) L 12/27/19 04:35 Baso % (Auto) 0.2 % (0.2-1.0) 12/27/19 04:35 Neut # (Auto) 8.8 x10^3/uL (2.2-4.8) H 12/27/19 04:35 Lymph # (Auto) 0.6 X10^3/uL (1.3-2.9) L 12/27/19 04:35 Izard # (Auto) 0.3 x10^3/uL (0.3-0.8) 12/27/19 04:35 Eos # (Auto) 0.0 x10^3/uL (0.0-0.2) 12/27/19 04:35 Baso # (Auto) 0.0 X10^3/uL (0.0-0.1) 12/27/19 04:35 Absolute Nucleated RBC 0.0 /100WBC 12/27/19 04:35 Total Counted 100 12/26/19 04:35 Neutrophils % (Manual) 92 % (39-76) H 12/26/19 04:35 Band Neutrophils % 3 % (0-10) 12/26/19 04:35 Lymphocytes % (Manual) 4 % (13-43) L 12/26/19 04:35 Monocytes % (Manual) 1 % (4-9) L 12/26/19 04:35 Plt Morphology Comment Normal (NORMAL) 12/26/19 04:35 RBC Morphology Normal (NORMAL) 12/26/19 04:35 Sample Site Lr 12/25/19 05:35 ABG pH 7.440 (7.35-7.45) 12/25/19 05:35 ABG pCO2 46.0 mmHg (35.0-45.0) H 12/25/19 05:35 ABG pO2 111.0 mmHg (80.0-100.0) H 12/25/19 05:35 ABG HCO3 31.2 mmol/L (22-26) H* 12/25/19 05:35 ABG O2 Saturation 99.0 % (90-100) 12/25/19 05:35 ABG Base Excess 6.1 mmol/L (-2.0-2.0) H 12/25/19 05:35 Fausto Test Pos 12/25/19 05:35 A-a Gradient 31.0 mmHg 12/25/19 05:35 FiO2 28.0 12/25/19 05:35 Blood Gas Comments Pt [email or web address] 12/25/19 05:35 Sodium 135 mmol/L (136-145) L 12/27/19 04:35 Corrected Sodium 138 mmol/L (136-145) 12/27/19 04:35 Potassium 3.2 mmol/L (3.5-5.1) L 12/27/19 04:35 Chloride 97 mmol/L (98-107) L 12/27/19 04:35 Carbon Dioxide 29.0 mmol/L (21-32) 12/27/19 04:35 BUN 16 mg/dL (7-18) 12/27/19 04:35 Creatinine 0.82 mg/dL (0.55-1.02) 12/27/19 04:35 Est GFR (MDRD) Af Amer > 60 (>60) 12/27/19 04:35 Est GFR (MDRD) Non-Af > 60 (>60) 12/27/19 04:35 Glucose 212 mg/dL (65-99) H 12/27/19 04:35 POC Glucose (mg/dL) 221 mg/dL (65-99) H 12/27/19 11:26 Calcium 8.3 mg/dL (8.5-10.1) L 12/27/19 04:35 Corrected Calcium 9.4 mg/dL (8.5-10.1) 12/27/19 04:35 Magnesium 2.2 mg/dL (1.7-2.9) 12/24/19 21:42 Ferritin 257 ng/mL (8-252) H 12/27/19 04:35 Total Bilirubin 0.40 mg/dL (0.2-1.0) 12/27/19 04:35 AST 17 Units/L (15-37) 12/27/19 04:35 ALT 52 Units/L (12-78) 12/27/19 04:35 Alkaline Phosphatase 68 Units/L (46-116) 12/27/19 04:35 C-Reactive Protein 54.90 mg/L (0-3.0) H 12/27/19 04:35 B-Natriuretic Peptide 50.8 pg/mL (0-79) 12/27/19 04:35 Total Protein 7.0 g/dL (6.4-8.2) 12/27/19 04:35 Albumin 2.6 g/dL (3.4-5.0) L 12/27/19 04:35 Globulin 4.4 g/dL (2.5-4.5) 12/27/19 04:35 Albumin/Globulin Ratio 0.6 Ratio (1.1-2.1) L 12/27/19 04:35 Blood Type O POSITIVE 12/24/19 21:42 - Plan (1) Pneumonia due to 2019 novel coronavirus Status: Acute Plan: SUPPLEMENTAL OXYGEN, REMDESIVIR 100MG IV DAILY, LEVAQUIN 750MG IV DAILY, 1/2NS AT 75 ML/HR, SOLU-MEDROL 80MG IV Q8H, DUONEBS QID, PULMICORT NEBS BID, TUSSIONEX 5ML PO Q12H, ROBITUSSIN DM 10 ML PO QID, THE POTASSIUM AND MAGNESIUM PROTOCOLS, HUMULIN R SLIDING SCALE, AND HER HOME MEDICATIONS WERE RESUMED, LASIX 40MG IV Q12H X 2 DOSES (2) COVID-19 Status: Acute (3) Hyperglycemia Status: Acute (4) Hypokalemia Status: Acute (5) HTN (hypertension) Status: Chronic Qualifiers: Hypertension type: essential hypertension
[2019-12-27] MEDS ORDERED: BENADRYL INJ 50 MG VIAL IVP ONE (14:33)
[2019-12-27] MEDS ORDERED: TYLENOL 325 MG TAB PO ONE ×2 (14:34→14:37)
[2019-12-27] MEDS ORDERED: BENADRYL INJ 50 MG VIAL ONE (14:36)
[2019-12-27] MEDS: LASIX IVP SCH (16:45)
[2019-12-27] MEDS: COLACE CAP 100 MG PO SCH (21:30)
[2019-12-27] MEDS: K-DUR TAB 20 MEQ PO PRN (21:30)
[2019-12-27] MEDS: LEVAQUIN PREMIX IV 750 MG 750 MG/150 ML BAG IV SCH (22:00)
[2019-12-28 05:23] LABS: BASOPHILS % (AUTO) 0.1 % (0.2-1.0); HEMOGLOBIN 12.2 g/dL (12.0-16.0); LYMPHOCYTES # (AUTO) 0.6 X10^3/uL (1.3-2.9); LYMPHOCYTES % (AUTO) 6.2 % (21.0-51.0); MEAN CORPUSCULAR HEMOGLOBIN 29.2 pg (27.0-34.0); MEAN CORPUSCULAR VOLUME 88.4 fL (80.0-100.0); MEAN PLATELET VOLUME 9.1 fL (7.4-11.0); MONOCYTES # (AUTO) 0.4 x10^3/uL (0.3-0.8); MONOCYTES % (AUTO) 4.6 % (0.0-13.0); NEUTROPHILS # (AUTO) 7.9 x10^3/uL (2.2-4.8); NEUTROPHILS % (AUTO) 89.1 % (42.0-75.0); PLATELET COUNT 222 X10^3/uL (150.0-450.0); RED BLOOD COUNT 4.18 X10^6/uL (3.5-5.4); RED CELL DISTRIBUTION WIDTH 14.9 % (11.6-16.5); WHITE BLOOD COUNT 8.9 X10^3/uL (3.6-10.0)
[2019-12-28 05:29] LABS: ALANINE AMINOTRANSFERASE 91 Units/L (12-78); ALBUMIN 2.6 g/dL (3.4-5.0); ALKALINE PHOSPHATASE 70 Units/L (46-116); ASPARTATE AMINO TRANSFERASE 47 Units/L (15-37); BLOOD UREA NITROGEN 23 mg/dL (7-18); CALCIUM 8.3 mg/dL (8.5-10.1); CARBON DIOXIDE 33.2 mmol/L (21-32); CHLORIDE 96 mmol/L (98-107); COR CA(FOR HYPOALB) 9.4 mg/dL (8.5-10.1); COR NA(FOR HYPERGLY) 137 mmol/L (136-145); CREATININE 0.89 mg/dL (0.55-1.02); SODIUM 135 mmol/L (136-145); TOTAL PROTEIN 7.2 g/dL (6.4-8.2); eGFR NON BLACK RACES > 60 (>60)
--- NOTE | 2019-12-28 06:24 | RAD ---
HISTORYShortness of breath, hypertensionSTUDYChest AP [id number] heart remains enlarged. Bilateral interstitial and patchy alveolar infiltrates are identified representing either congestive heart failure or bilateral pneumonia. Clinical correlation is recommended. Findings are unchanged when compared with the prior examination. No pleural effusions are identified. Bony thorax is unremarkable.IMPRESSIONNo change cardiomegalyNo change bilateral interstitial and patchy alveolar infiltrates which could be due to congestive heart failure or infectionElectronically signed by: LEON SALAZAR (Dec 28, 2019 06:24:21)
[2019-12-28] MEDS: SOLU-Medrol 40 MG VIAL IVP SCH ×3 (06:25→20:59)
[2019-12-28] MEDS: TESSALON PERLES PO SCH ×3 (06:25→20:59)
[2019-12-28] MEDS: HumuLIN R SC PRN ×4 (06:26→21:07)
[2019-12-28 07:13] LABS: ABG BASE EXCESS 10.6 mmol/L (-2.0-2.0)
[2019-12-28 07:15] LABS: ABG ALLEN TEST POS; ABG HCO3 34.3 mmol/L (22-26)
[2019-12-28] MEDS: LASIX IVP SCH ×3 (08:41→21:00)
[2019-12-28] MEDS: ASPIRIN 81 MG CHEWTAB PO SCH (08:42)
[2019-12-28] MEDS: MILK OF MAGNESIA PO SCH (08:42)
[2019-12-28] MEDS: HYZAAR 50/12.5 MG PO SCH ×2 (08:42→21:03)
[2019-12-28] MEDS: PROTONIX INJ 40 MG VIAL IVP SCH ×2 (08:43→21:15)
[2019-12-28] MEDS: LOVENOX INJ 40 MG SYR SC SCH (08:43)
[2019-12-28] MEDS: REMDESIVIR (INVESTIGATIONAL DRUG GS-5734) 100 MG in NS 250 ML IV 250 ML IV SCH (08:44)
[2019-12-28] MEDS: ROBITUSSIN DM PO SCH ×4 (08:44→21:02)
[2019-12-28] MEDS: TOPROL XL PO SCH ×2 (08:45→21:02)
[2019-12-28] MEDS: TUSSIONEX PENNKINETIC SUSP PO SCH ×2 (08:45→21:00)
[2019-12-28] MEDS: VSL#3 PO SCH (08:45)
[2019-12-28] MEDS: ZYLOPRIM PO SCH (08:46)
[2019-12-28] MEDS: OLOPATADINE SCH ×2 (08:46→21:05)
[2019-12-28] MEDS: DUONEB 0.5 MG/3 MG (3 mL) NEB SCH ×4 (09:35→21:17)
[2019-12-28] MEDS: PULMICORT NEB TX 0.5 MG NEB SCH ×2 (09:35→21:17)
--- NOTE | 2019-12-28 12:04 | PCM.PROG ---
Progress Note - Progress Note for Day of Date of Exam: 12/28/19 - Subjective Subjective: IS BEING TREATED FOR PNEUMONIA DUE TO COVID-19. TODAY, SHE IS ALERT AND ORIENTED, LYING IN BED ON MORNING ROUNDS. SHE CONTINUES WITH COMPLAINTS OF COUGH AND SHORTNESS OF BREATH TODAY. SHE AGAIN, REPORTS THAT SHORTNESS OF BREATH SEEMS WORSE TODAY COMPARED TO YESTERDAY. SHE IS CURRENTLY UTILIZING OXYGEN VIA NASAL CANNULA AT 5L/MIN. HER OXYGEN SATURATIONS HAVE FALLEN INTO THE 80s ON MULTIPLE OCCASIONS THROUGHOUT THE NIGHT. SHE RECEIVED A SECOND DOSE OF CONVALESCENT PLASMA. ON EXAMINATION, HEART IS REGULAR IN RATE AND RHYTHM. BILATERAL LUNGS ARE NOTED WITH SCATTERED WHEEZING THROUGHOUT. ABDOMEN IS ROUND, SOFT, AND NON-TENDER WITH NORMAL BOWEL SOUNDS NOTED IN ALL QUADRANTS. HER VITALS THIS MORNING ARE: 97.9-71-19-93%NC-130/68. LABS WERE OBTAINED. ABNORMAL LAB VALUES INCLUDE THE FOLLOWING: SODIUM 135, CHLORIDE 96, CARBON DIOXIDE 33.2, BUN 23, GLUCOSE 193, CALCIUM 8.3, FERRITIN 338, AST 47, ALT 91, CRP 53.70, ALBUMIN 2.6, GLOBULIN 4.6. BLOOD AND SPUTUM CULTURES ARE PENDING. A CHEST XRAY WAS OBTAINED AND REVEALED: No change cardiomegaly. No change bilateral interstitial and patchy alveolar infiltrates which could be due to congestive heart failure or infection. SHE IS CURRENTLY RECEIVING REMDESIVIR 100MG IV DAILY, LEVAQUIN 750MG IV DAILY, 1/2NS AT 75 ML/HR, SOLU-MEDROL 80MG IV Q8H, DUONEBS QID, PULMICORT NEBS BID, TUSSIONEX 5ML PO Q12H, ROBITUSSIN DM 10 ML PO QID, LASIX 40MG IV Q12H, THE POTASSIUM AND MAGNESIUM PROTOCOLS, HUMULIN R SLIDING SCALE, AND HER HOME MEDICATIONS WERE RESUMED. TODAY, WE WILL RESTRICT HER FLUIDS AND ORDER FOR HER TO WEAR THE BIPAP THROUGHOUT THE DAY AND NIGHT TOLERATED. OTHERWISE, WE WILL CONTINUE WITH CURRENT PLAN OF CARE. WE PLAN TO FOLLOW UP WITH AM LABS, CHEST XRAY, ABG, AND CONTINUE TO MONITOR. - Past Medical Family Social History Past Med/Fam/Surg Hx: No changes since H&P Allergies: Allergies Penicillins Allergy (Verified 12/24/19 21:21) - Review of Systems ROS: No change since H&P - Vital Signs and I&O's Vital Signs: Temperature 97.9 F Pulse Rate 71 Respiratory Rate 19 Blood Pressure 130/68 O2 Sat by Pulse Oximetry 93 Intake and Output: Intake & Output 12/26/19 12/27/19 12/28/19 12/29/19 11:59 11:59 11:59 11:59 Intake Total 3485 / 3485 4167 / 4167 3086 / 3086 Balance 3485 / 3485 4167 / 4167 3086 / 3086 - Physical Exam Oriented: Normal Eyes: Normal Ear: Normal Nose: Normal Throat: Normal Respiratory: Generalized, Diminished Cardiovascular: Normal : Normal Auscultation: Bowel Sounds: Normal Palpation: Normal Tenderness: Normal Skin: Normal Musculoskeletal: Normal Psychiatric: Normal Mood Description: Calm Affect: Normal Speech Pattern: Clear, Appropriate - Laboratory and Diagnostics Result Diagrams: 12/28/19 04:50 12/28/19 04:50 Labs: 12/27/19 19:58 Sputum - Expectorated Sputum Sputum Culture - Preliminary 12/27/19 19:58 Sputum - Expectorated Sputum - Final 12/24/19 21:38 Blood Blood Culture - Preliminary 12/24/19 21:42 Blood Blood Culture - Preliminary Laboratory WBC 8.9 X10^3/uL (3.6-10.0) 12/28/19 04:50 RBC 4.18 X10^6/uL (3.5-5.4) 12/28/19 04:50 Hgb 12.2 g/dL (12.0-16.0) 12/28/19 04:50 Hct 37.0 % (36.0-47.0) 12/28/19 04:50 MCV 88.4 fL (80.0-100.0) 12/28/19 04:50 MCH 29.2 pg (27.0-34.0) 12/28/19 04:50 MCHC 33.0 g/dL (33.0-35.0) 12/28/19 04:50 RDW 14.9 % (11.6-16.5) 12/28/19 04:50 Plt Count 222 X10^3/uL (150.0-450.0) 12/28/19 04:50 Plt Count Comment Adequate (ADEQUATE) 12/26/19 04:35 MPV 9.1 fL (7.4-11.0) 12/28/19 04:50 Neut % (Auto) 89.1 % (42.0-75.0) H 12/28/19 04:50 Lymph % (Auto) 6.2 % (21.0-51.0) L 12/28/19 04:50 Humphreys % (Auto) 4.6 % (0.0-13.0) 12/28/19 04:50 Eos % (Auto) 0.0 % (0.9-2.9) L 12/28/19 04:50 Baso % (Auto) 0.1 % (0.2-1.0) L 12/28/19 04:50 Neut # (Auto) 7.9 x10^3/uL (2.2-4.8) H 12/28/19 04:50 Lymph # (Auto) 0.6 X10^3/uL (1.3-2.9) L 12/28/19 04:50 Humphreys # (Auto) 0.4 x10^3/uL (0.3-0.8) 12/28/19 04:50 Eos # (Auto) 0.0 x10^3/uL (0.0-0.2) 12/28/19 04:50 Baso # (Auto) 0.0 X10^3/uL (0.0-0.1) 12/28/19 04:50 Absolute Nucleated RBC 0.0 /100WBC 12/28/19 04:50 Total Counted 100 12/26/19 04:35 Neutrophils % (Manual) 92 % (39-76) H 12/26/19 04:35 Band Neutrophils % 3 % (0-10) 12/26/19 04:35 Lymphocytes % (Manual) 4 % (13-43) L 12/26/19 04:35 Monocytes % (Manual) 1 % (4-9) L 12/26/19 04:35 Plt Morphology Comment Normal (NORMAL) 12/26/19 04:35 RBC Morphology Normal (NORMAL) 12/26/19 04:35 D-Dimer < 0.27 ug/ml (0.0-0.57) 12/28/19 04:50 Sample Site Rrad 12/28/19 07:10 ABG pH 7.530 (7.35-7.45) H 12/28/19 07:10 ABG pCO2 41.0 mmHg (35.0-45.0) 12/28/19 07:10 ABG pO2 64.0 mmHg (80.0-100.0) L 12/28/19 07:10 ABG HCO3 34.3 mmol/L (22-26) H* 12/28/19 07:10 ABG O2 Saturation 94.0 % (90-100) 12/28/19 07:10 ABG Base Excess 10.6 mmol/L (-2.0-2.0) H 12/28/19 07:10 Fausto Test Pos 12/28/19 07:10 A-a Gradient 170.0 mmHg 12/28/19 07:10 FiO2 40.0 12/28/19 07:10 Blood Gas Comments Judie abg well-mtf 12/28/19 07:10 Sodium 135 mmol/L (136-145) L 12/28/19 04:50 Corrected Sodium 137 mmol/L (136-145) 12/28/19 04:50 Potassium 3.5 mmol/L (3.5-5.1) 12/28/19 04:50 Chloride 96 mmol/L (98-107) L 12/28/19 04:50 Carbon Dioxide 33.2 mmol/L (21-32) H 12/28/19 04:50 BUN 23 mg/dL (7-18) H 12/28/19 04:50 Creatinine 0.89 mg/dL (0.55-1.02) 12/28/19 04:50 Est GFR (MDRD) Af Amer > 60 (>60) 12/28/19 04:50 Est GFR (MDRD) Non-Af > 60 (>60) 12/28/19 04:50 Glucose 193 mg/dL (65-99) H 12/28/19 04:50 POC Glucose (mg/dL) 260 mg/dL (65-99) H 12/28/19 11:38 Calcium 8.3 mg/dL (8.5-10.1) L 12/28/19 04:50 Corrected Calcium 9.4 mg/dL (8.5-10.1) 12/28/19 04:50 Magnesium 2.4 mg/dL (1.7-2.9) 12/28/19 04:50 Ferritin 338 ng/mL (8-252) H 12/28/19 04:50 Total Bilirubin 0.50 mg/dL (0.2-1.0) 12/28/19 04:50 AST 47 Units/L (15-37) H 12/28/19 04:50 ALT 91 Units/L (12-78) H 12/28/19 04:50 Alkaline Phosphatase 70 Units/L (46-116) 12/28/19 04:50 C-Reactive Protein 53.70 mg/L (0-3.0) H 12/28/19 04:50 B-Natriuretic Peptide 50.8 pg/mL (0-79) 12/27/19 04:35 Total Protein 7.2 g/dL (6.4-8.2) 12/28/19 04:50 Albumin 2.6 g/dL (3.4-5.0) L 12/28/19 04:50 Globulin 4.6 g/dL (2.5-4.5) H 12/28/19 04:50 Albumin/Globulin Ratio 0.6 Ratio (1.1-2.1) L 12/28/19 04:50 Blood Type O POSITIVE 12/24/19 21:42 - Plan (1) Pneumonia due to 2019 novel coronavirus Status: Acute Plan: SUPPLEMENTAL OXYGEN, BIPAP, REMDESIVIR 100MG IV DAILY, LEVAQUIN 750MG IV DAILY, 1/2NS AT 75 ML/HR, SOLU-MEDROL 80MG IV Q8H, DUONEBS QID, PULMICORT NEBS BID, TUSSIONEX 5ML PO Q12H, ROBITUSSIN DM 10 ML PO QID, THE POTASSIUM AND MAGNESIUM PROTOCOLS, HUMULIN R SLIDING SCALE, AND HER HOME MEDICATIONS WERE RESUMED, LASIX 40MG IV Q12H (2) COVID-19 Status: Acute (3) Hyperglycemia Status: Acute (4) Hypokalemia Status: Acute (5) HTN (hypertension) Status: Chronic Qualifiers: Hypertension type: essential hypertension
[2019-12-28] MEDS ORDERED: XANAX ONE (17:20)
[2019-12-28] MEDS: KLOR-CON PO PRN (17:24)
[2019-12-28] MEDS: XANAX PO PRN (17:25)
[2019-12-28] MEDS: COLACE CAP 100 MG PO SCH (20:58)
[2019-12-28] MEDS: K-DUR TAB 20 MEQ PO PRN (21:09)
[2019-12-28] MEDS: LEVAQUIN PREMIX IV 750 MG 750 MG/150 ML BAG IV SCH (22:33)
[2019-12-29] MEDS: XANAX PO PRN
[2019-12-29 05:14] LABS: BASOPHILS % (AUTO) 0.1 % (0.2-1.0); HEMATOCRIT 38.8 % (36.0-47.0); LYMPHOCYTES # (AUTO) 0.5 X10^3/uL (1.3-2.9); LYMPHOCYTES % (AUTO) 6.2 % (21.0-51.0); MEAN CORPUSCULAR HEMOGLOBIN 29.3 pg (27.0-34.0); MEAN CORPUSCULAR HGB CONC 33.4 g/dL (33.0-35.0); MEAN CORPUSCULAR VOLUME 87.9 fL (80.0-100.0); MEAN PLATELET VOLUME 8.9 fL (7.4-11.0); MONOCYTES # (AUTO) 0.5 x10^3/uL (0.3-0.8); MONOCYTES % (AUTO) 5.2 % (0.0-13.0); NEUTROPHILS # (AUTO) 7.6 x10^3/uL (2.2-4.8); NEUTROPHILS % (AUTO) 88.5 % (42.0-75.0); PLATELET COUNT 235 X10^3/uL (150.0-450.0); RED BLOOD COUNT 4.42 X10^6/uL (3.5-5.4); RED CELL DISTRIBUTION WIDTH 14.7 % (11.6-16.5); WHITE BLOOD COUNT 8.6 X10^3/uL (3.6-10.0)
[2019-12-29 05:30] LABS: ALANINE AMINOTRANSFERASE 129 Units/L (12-78); ALBUMIN 2.5 g/dL (3.4-5.0); ALKALINE PHOSPHATASE 78 Units/L (46-116); ASPARTATE AMINO TRANSFERASE 56 Units/L (15-37); BLOOD UREA NITROGEN 28 mg/dL (7-18); CALCIUM 8.4 mg/dL (8.5-10.1); CARBON DIOXIDE 36.2 mmol/L (21-32); CHLORIDE 94 mmol/L (98-107); COR CA(FOR HYPOALB) 9.6 mg/dL (8.5-10.1); COR NA(FOR HYPERGLY) 137 mmol/L (136-145); CREATININE 0.92 mg/dL (0.55-1.02); MAGNESIUM 2.7 mg/dL (1.7-2.9); SODIUM 134 mmol/L (136-145); TOTAL PROTEIN 7.5 g/dL (6.4-8.2); eGFR NON BLACK RACES > 60 (>60)
[2019-12-29] MEDS: SOLU-Medrol 40 MG VIAL IVP SCH ×3 (05:51→21:15)
[2019-12-29] MEDS: HumuLIN R SC PRN ×4 (05:52→21:17)
[2019-12-29] MEDS: TESSALON PERLES PO SCH ×3 (05:52→21:17)
--- NOTE | 2019-12-29 05:55 | RAD ---
HISTORYShortness of breathSTUDYChest AP [id number] heart is enlarged. No congestive heart failure is noted. Bilateral interstitial patchy and confluent alveolar infiltrates are unchanged. No pleural effusions are identified. Bony thorax is unremarkable.IMPRESSIONNo change cardiomegalyNo change bilateral interstitial patchy and some confluent alveolar infiltrates which could represent congestive heart failure or infection.Electronically signed by: LEON SALAZAR (Dec 29, 2019 05:55:54)
[2019-12-29 06:04] LABS: ABG BASE EXCESS 14.1 mmol/L (-2.0-2.0)
[2019-12-29 06:05] LABS: ABG HCO3 39.1 mmol/L (22-26)
[2019-12-29 06:08] LABS: ABG ALLEN TEST POS
[2019-12-29] MEDS: DUONEB 0.5 MG/3 MG (3 mL) NEB SCH ×4 (09:25→21:33)
[2019-12-29] MEDS: PULMICORT NEB TX 0.5 MG NEB SCH ×2 (09:25→21:33)
[2019-12-29] MEDS: ASPIRIN 81 MG CHEWTAB PO SCH (09:54)
[2019-12-29] MEDS: MILK OF MAGNESIA PO SCH (09:55)
[2019-12-29] MEDS: HYZAAR 50/12.5 MG PO SCH ×2 (09:55→20:35)
[2019-12-29] MEDS: LASIX IVP SCH ×2 (09:55→20:36)
[2019-12-29] MEDS: REMDESIVIR (INVESTIGATIONAL DRUG GS-5734) 100 MG in NS 250 ML IV 250 ML IV SCH (09:56)
[2019-12-29] MEDS: PROTONIX INJ 40 MG VIAL IVP SCH ×2 (09:56→20:36)
[2019-12-29] MEDS: OLOPATADINE SCH ×2 (09:56→20:36)
[2019-12-29] MEDS: ROBITUSSIN DM PO SCH ×4 (09:57→20:36)
[2019-12-29] MEDS: VSL#3 PO SCH (09:57)
[2019-12-29] MEDS: ZYLOPRIM PO SCH (09:58)
[2019-12-29] MEDS: TOPROL XL PO SCH ×2 (09:58→20:37)
[2019-12-29] MEDS: LOVENOX INJ 40 MG SYR SC SCH (09:58)
[2019-12-29] MEDS: TUSSIONEX PENNKINETIC SUSP PO SCH ×2 (09:58→21:16)
--- NOTE | 2019-12-29 16:18 | PCM.PROG ---
Progress Note - Progress Note for Day of Date of Exam: 12/29/19 - Subjective Subjective: IS BEING TREATED FOR PNEUMONIA DUE TO COVID-19. TODAY, SHE IS ALERT AND ORIENTED, LYING IN BED ON MORNING ROUNDS. SHE CONTINUES WITH COMPLAINTS OF COUGH AND SHORTNESS OF BREATH TODAY. SHE IS CURRENTLY UTILIZING HEATED HIGH FLOW OXYGEN. SHE HAS UTILIZED THE BIPAP THROUGHOUT THE NIGHT. HER OXYGEN SATURATIONS HAVE FALLEN INTO THE 80s ON MULTIPLE OCCASIONS THROUGHOUT THE NIGHT AND THIS MORNING. SHE DENIES SIGNIFICANT IMPROVEMENT IN SYMPTOMS SINCE ONE DAY PRIOR. ON EXAMINATION, HEART IS REGULAR IN RATE AND RHYTHM. BILATERAL LUNGS ARE NOTED WITH SCATTERED WHEEZING THROUGHOUT. ABDOMEN IS ROUND, SOFT, AND NON- TENDER WITH NORMAL BOWEL SOUNDS NOTED IN ALL QUADRANTS. HER VITALS THIS MORNING ARE: 98.4-58-33-93%BIPAP-146/74. LABS WERE OBTAINED. ABNORMAL LAB VALUES INCLUDE THE FOLLOWING: SODIUM 134, CHLORIDE 94, CARBON DIOXIDE 36.2, BUN 28, GLUCOSE 219, CALCIUM 8.4, FERRITIN 507, AST 56, ALT 129, CRP 69.70, ALBUMIN 2.5, GLOBULIN 5.0. BLOOD AND SPUTUM CULTURES ARE PENDING. AN ABG WAS OBTAINED THIS MORNING AND REVEALED: PH 7.510, PC02 49, P02 77, HC03 39.1, 02 SAT 96, BASE EXCESS 14.1, FI02 60. A CHEST XRAY WAS OBTAINED AND REVEALED: change cardiomegaly. No change bilateral interstitial patchy and some confluent alveolar infiltrates which could represent congestive heart failure or infection. SHE IS CURRENTLY RECEIVING REMDESIVIR 100MG IV DAILY, LEVAQUIN 750MG IV DAILY, 1/2NS AT 75 ML/HR, SOLU-MEDROL 80MG IV Q8H, DUONEBS QID, PULMICORT NEBS BID, TUSSIONEX 5ML PO Q12H, ROBITUSSIN DM 10 ML PO QID, LASIX 40MG IV Q12H, THE POTASSIUM AND MAGNESIUM PROTOCOLS, HUMULIN R SLIDING SCALE, AND HER HOME MEDICATIONS WERE RESUMED. WE WILL OBTAIN AN ECHO TODAY. OTHERWISE, WE WILL NIKOLAY NUE WITH CURRENT PLAN OF CARE. WE PLAN TO FOLLOW UP WITH AM LABS, CHEST XRAY, ABG, AND CONTINUE TO MONITOR. - Past Medical Family Social History Past Med/Fam/Surg Hx: No changes since H&P Allergies: Allergies Penicillins Allergy (Verified 12/24/19 21:21) - Review of Systems ROS: No change since H&P - Vital Signs and I&O's Vital Signs: Temperature 98.6 F Pulse Rate 63 Respiratory Rate 19 Blood Pressure 112/58 O2 Sat by Pulse Oximetry 91 Intake and Output: Intake & Output 12/27/19 12/28/19 12/29/19 12/30/19 11:59 11:59 11:59 11:59 Intake Total 4167 / 4167 3286 / 3286 2397 / 2397 Output Total 1825 / 1825 Balance 4167 / 4167 3286 / 3286 572 / 572 - Physical Exam Oriented: Normal Eyes: Normal Ear: Normal Nose: Normal Throat: Normal Respiratory: Generalized, Diminished Cardiovascular: Normal : Normal Auscultation: Bowel Sounds: Normal Tenderness: Normal Skin: Normal Musculoskeletal: Normal Psychiatric: Normal Mood Description: Calm Affect: Normal Speech Pattern: Clear, Appropriate - Laboratory and Diagnostics Result Diagrams: 12/29/19 04:40 12/29/19 04:40 Labs: 12/27/19 19:58 Sputum - Expectorated Sputum Sputum Culture - Final 12/27/19 19:58 Sputum - Expectorated Sputum - Final 12/24/19 21:38 Blood Blood Culture - Preliminary 12/24/19 21:42 Blood Blood Culture - Preliminary Laboratory WBC 8.6 X10^3/uL (3.6-10.0) 12/29/19 04:40 RBC 4.42 X10^6/uL (3.5-5.4) 12/29/19 04:40 Hgb 13.0 g/dL (12.0-16.0) 12/29/19 04:40 Hct 38.8 % (36.0-47.0) 12/29/19 04:40 MCV 87.9 fL (80.0-100.0) 12/29/19 04:40 MCH 29.3 pg (27.0-34.0) 12/29/19 04:40 MCHC 33.4 g/dL (33.0-35.0) 12/29/19 04:40 RDW 14.7 % (11.6-16.5) 12/29/19 04:40 Plt Count 235 X10^3/uL (150.0-450.0) 12/29/19 04:40 Plt Count Comment Adequate (ADEQUATE) 12/26/19 04:35 MPV 8.9 fL (7.4-11.0) 12/29/19 04:40 Neut % (Auto) 88.5 % (42.0-75.0) H 12/29/19 04:40 Lymph % (Auto) 6.2 % (21.0-51.0) L 12/29/19 04:40 Arthur % (Auto) 5.2 % (0.0-13.0) 12/29/19 04:40 Eos % (Auto) 0.0 % (0.9-2.9) L 12/29/19 04:40 Baso % (Auto) 0.1 % (0.2-1.0) L 12/29/19 04:40 Neut # (Auto) 7.6 x10^3/uL (2.2-4.8) H 12/29/19 04:40 Lymph # (Auto) 0.5 X10^3/uL (1.3-2.9) L 12/29/19 04:40 Arthur # (Auto) 0.5 x10^3/uL (0.3-0.8) 12/29/19 04:40 Eos # (Auto) 0.0 x10^3/uL (0.0-0.2) 12/29/19 04:40 Baso # (Auto) 0.0 X10^3/uL (0.0-0.1) 12/29/19 04:40 Absolute Nucleated RBC 0.0 /100WBC 12/29/19 04:40 Total Counted 100 12/26/19 04:35 Neutrophils % (Manual) 92 % (39-76) H 12/26/19 04:35 Band Neutrophils % 3 % (0-10) 12/26/19 04:35 Lymphocytes % (Manual) 4 % (13-43) L 12/26/19 04:35 Monocytes % (Manual) 1 % (4-9) L 12/26/19 04:35 Plt Morphology Comment Normal (NORMAL) 12/26/19 04:35 RBC Morphology Normal (NORMAL) 12/26/19 04:35 D-Dimer < 0.27 ug/ml (0.0-0.57) 12/28/19 04:50 Sample Site Rra 12/29/19 05:55 ABG pH 7.510 (7.35-7.45) H 12/29/19 05:55 ABG pCO2 49.0 mmHg (35.0-45.0) H 12/29/19 05:55 ABG pO2 77.0 mmHg (80.0-100.0) L 12/29/19 05:55 ABG HCO3 39.1 mmol/L (22-26) H* 12/29/19 05:55 ABG O2 Saturation 96.0 % (90-100) 12/29/19 05:55 ABG Base Excess 14.1 mmol/L (-2.0-2.0) H 12/29/19 05:55 Fausto Test Pos 12/29/19 05:55 A-a Gradient 290.0 mmHg 12/29/19 05:55 FiO2 60.0 12/29/19 05:55 Blood Gas Comments Judie well 12/29/19 05:55 Sodium 134 mmol/L (136-145) L 12/29/19 04:40 Corrected Sodium 137 mmol/L (136-145) 12/29/19 04:40 Potassium 3.9 mmol/L (3.5-5.1) 12/29/19 04:40 Chloride 94 mmol/L (98-107) L 12/29/19 04:40 Carbon Dioxide 36.2 mmol/L (21-32) H 12/29/19 04:40 BUN 28 mg/dL (7-18) H 12/29/19 04:40 Creatinine 0.92 mg/dL (0.55-1.02) 12/29/19 04:40 Est GFR (MDRD) Af Amer > 60 (>60) 12/29/19 04:40 Est GFR (MDRD) Non-Af > 60 (>60) 12/29/19 04:40 Glucose 219 mg/dL (65-99) H 12/29/19 04:40 POC Glucose (mg/dL) 240 mg/dL (65-99) H 12/29/19 11:13 Calcium 8.4 mg/dL (8.5-10.1) L 12/29/19 04:40 Corrected Calcium 9.6 mg/dL (8.5-10.1) 12/29/19 04:40 Magnesium 2.7 mg/dL (1.7-2.9) 12/29/19 04:40 Ferritin 507 ng/mL (8-252) H 12/29/19 04:40 Total Bilirubin 0.50 mg/dL (0.2-1.0) 12/29/19 04:40 AST 56 Units/L (15-37) H 12/29/19 04:40 ALT 129 Units/L (12-78) H 12/29/19 04:40 Alkaline Phosphatase 78 Units/L (46-116) 12/29/19 04:40 C-Reactive Protein 69.70 mg/L (0-3.0) H 12/29/19 04:40 B-Natriuretic Peptide 50.8 pg/mL (0-79) 12/27/19 04:35 Total Protein 7.5 g/dL (6.4-8.2) 12/29/19 04:40 Albumin 2.5 g/dL (3.4-5.0) L 12/29/19 04:40 Globulin 5.0 g/dL (2.5-4.5) H 12/29/19 04:40 Albumin/Globulin Ratio 0.5 Ratio (1.1-2.1) L 12/29/19 04:40 Blood Type O POSITIVE 12/24/19 21:42 - Plan (1) Pneumonia due to 2019 novel coronavirus Status: Acute Plan: SUPPLEMENTAL OXYGEN, BIPAP, REMDESIVIR 100MG IV DAILY, LEVAQUIN 750MG IV DAILY, 1/2NS AT 75 ML/HR, SOLU-MEDROL 80MG IV Q8H, DUONEBS QID, PULMICORT NEBS BID, TUSSIONEX 5ML PO Q12H, ROBITUSSIN DM 10 ML PO QID, THE POTASSIUM AND MAGNESIUM PROTOCOLS, HUMULIN R SLIDING SCALE, AND HER HOME MEDICATIONS WERE RESUMED, LASIX 40MG IV Q12H (2) COVID-19 Status: Acute (3) Hyperglycemia Status: Acute (4) Hypokalemia Status: Acute (5) HTN (hypertension) Status: Chronic Qualifiers: Hypertension type: essential hypertension
[2019-12-29] MEDS: COLACE CAP 100 MG PO SCH (20:35)
[2019-12-29] MEDS: LEVAQUIN PREMIX IV 750 MG 750 MG/150 ML BAG IV SCH (23:44)
[2019-12-30 04:59] LABS: BASOPHILS % (AUTO) 0.1 % (0.2-1.0); HEMATOCRIT 37.7 % (36.0-47.0); HEMOGLOBIN 12.5 g/dL (12.0-16.0); LYMPHOCYTES # (AUTO) 0.5 X10^3/uL (1.3-2.9); LYMPHOCYTES % (AUTO) 5.9 % (21.0-51.0); MEAN CORPUSCULAR HEMOGLOBIN 29.3 pg (27.0-34.0); MEAN CORPUSCULAR HGB CONC 33.2 g/dL (33.0-35.0); MEAN CORPUSCULAR VOLUME 88.3 fL (80.0-100.0); MEAN PLATELET VOLUME 9.1 fL (7.4-11.0); MONOCYTES # (AUTO) 0.6 x10^3/uL (0.3-0.8); MONOCYTES % (AUTO) 6.3 % (0.0-13.0); NEUTROPHILS # (AUTO) 7.7 x10^3/uL (2.2-4.8); NEUTROPHILS % (AUTO) 87.7 % (42.0-75.0); PLATELET COUNT 253 X10^3/uL (150.0-450.0); RED BLOOD COUNT 4.27 X10^6/uL (3.5-5.4); RED CELL DISTRIBUTION WIDTH 14.6 % (11.6-16.5); WHITE BLOOD COUNT 8.8 X10^3/uL (3.6-10.0)
[2019-12-30 05:09] LABS: ALANINE AMINOTRANSFERASE 143 Units/L (12-78); ALBUMIN 2.3 g/dL (3.4-5.0); ALKALINE PHOSPHATASE 76 Units/L (46-116); ASPARTATE AMINO TRANSFERASE 57 Units/L (15-37); BLOOD UREA NITROGEN 43 mg/dL (7-18); CALCIUM 8.3 mg/dL (8.5-10.1); CARBON DIOXIDE 34.2 mmol/L (21-32); CHLORIDE 92 mmol/L (98-107); COR CA(FOR HYPOALB) 9.7 mg/dL (8.5-10.1); COR NA(FOR HYPERGLY) 134 mmol/L (136-145); SODIUM 132 mmol/L (136-145); eGFR NON BLACK RACES > 60 (>60)
[2019-12-30 05:27] LABS: ABG BASE EXCESS 17.9 mmol/L (-2.0-2.0)
[2019-12-30 05:28] LABS: ABG ALLEN TEST POS; ABG HCO3 42.1 mmol/L (22-26)
--- NOTE | 2019-12-30 05:52 | RAD ---
HISTORYShortness of breathSTUDYChest AP [id number]/2020FINDINGSThe heart remains enlarged. No definite congestive heart failure is identified. Bilateral interstitial, patchy, and some con for alveolar infiltrates are again identified and unchanged considering slight difference in film technique. No pleural effusions are identified. Bony thorax is unremarkable.IMPRESSIONNo change cardiomegaly without congestive heart failureNo change bilateral infiltratesElectronically signed by: LEON SALAZAR (Dec 30, 2019 05:52:39)
[2019-12-30] MEDS: TESSALON PERLES PO SCH ×3 (07:10→21:30)
[2019-12-30] MEDS: SOLU-Medrol 40 MG VIAL IVP SCH ×3 (07:10→21:30)
[2019-12-30] MEDS ORDERED: ACTEMRA 400 MG in NS 100 ML IV 80 ML IV NR (08:00)
[2019-12-30] MEDS: K-DUR TAB 20 MEQ PO PRN (08:30)
[2019-12-30] MEDS: HYZAAR 50/12.5 MG PO SCH ×2 (09:02→21:30)
[2019-12-30] MEDS: ASPIRIN 81 MG CHEWTAB PO SCH (09:02)
[2019-12-30] MEDS: LASIX IVP SCH ×2 (09:04→21:30)
[2019-12-30] MEDS: MILK OF MAGNESIA PO SCH (09:05)
[2019-12-30] MEDS: LOVENOX INJ 40 MG SYR SC SCH (09:05)
[2019-12-30] MEDS: OLOPATADINE SCH ×2 (09:06→21:30)
[2019-12-30] MEDS: PROTONIX INJ 40 MG VIAL IVP SCH ×2 (09:08→21:30)
[2019-12-30] MEDS: REMDESIVIR (INVESTIGATIONAL DRUG GS-5734) 100 MG in NS 250 ML IV 250 ML IV SCH (09:09)
[2019-12-30] MEDS: ROBITUSSIN DM PO SCH ×4 (09:10→21:30)
[2019-12-30] MEDS: TOPROL XL PO SCH ×2 (09:10→21:30)
[2019-12-30] MEDS: VSL#3 PO SCH (09:10)
[2019-12-30] MEDS: TUSSIONEX PENNKINETIC SUSP PO SCH ×2 (09:10→21:30)
[2019-12-30] MEDS: ZYLOPRIM PO SCH (09:11)
[2019-12-30] MEDS: PULMICORT NEB TX 0.5 MG NEB SCH ×2 (09:35→21:10)
[2019-12-30] MEDS: DUONEB 0.5 MG/3 MG (3 mL) NEB SCH ×4 (09:35→21:10)
--- NOTE | 2019-12-30 10:30 | PCM.PROG ---
Progress Note - Progress Note for Day of Date of Exam: 12/30/19 - Subjective Subjective: IS BEING TREATED FOR PNEUMONIA DUE TO COVID-19. TODAY, SHE IS ALERT AND ORIENTED, LYING IN BED ON MORNING ROUNDS. SHE CONTINUES WITH COMPLAINTS OF COUGH AND SHORTNESS OF BREATH TODAY. SHE CONTINUES TO UTILIZE HEATED HIGH FLOW OXYGEN AT 100% FI02 THIS MORNING. SHE HAS UTILIZED THE BIPAP THROUGHOUT THE NIGHT. HER OXYGEN SATURATIONS HAVE FALLEN INTO THE 80s ON MULTIPLE OCCASIONS WHILE OFF OF THE BIPAP THROUGHOUT THE NIGHT. SHE DENIES SIGNIFICANT IMPROVEMENT IN SYMPTOMS SINCE ONE DAY PRIOR. ON EXAMINATION, HEART IS REGULAR IN RATE AND RHYTHM. BILATERAL LUNGS ARE NOTED WITH SCATTERED WHEEZING THROUGHOUT. ABDOMEN IS ROUND, SOFT, AND NON-TENDER WITH NORMAL BOWEL SOUNDS NOTED IN ALL QUADRANTS. HER VITALS THIS MORNING ARE: 98.7-62-18-90%HHF-106/63. LABS WERE OBTAINED. ABNORMAL LAB VALUES INCLUDE THE FOLLOWING: SODIUM 132, POTASSIUM 3.2, CHLORIDE 92, CARBON DIOXIDE 34.2, BUN 43, GLUCOSE 200, CALCIUM 8.3, FERRITIN 640, AST 57, ALT 143, CRP 57.70, ALBUMIN 2.3, GLOBULIN 4.7. BLOOD AND SPUTUM CULTURES ARE PENDING. AN ABG WAS OBTAINED THIS MORNING AND REVEALED: PH 7.570, PC02 46, P02 60, HC03 42.1, 02 SAT 94, BASE EXCESS 17.9, FI02 100.0. A CHEST XRAY WAS OBTAINED AND REVEALED: No change cardiomegaly without congestive heart failure. No change bilateral infiltrates. SHE IS CURRENTLY RECEIVING REMDESIVIR 100MG IV DAILY, LEVAQUIN 750MG IV DAILY, 1/2NS AT 75 ML/HR, SOLU- MEDROL 80MG IV Q8H, DUONEBS QID, PULMICORT NEBS BID, TUSSIONEX 5ML PO Q12H, ROBITUSSIN DM 10 ML PO QID, LASIX 40MG IV Q12H, THE POTASSIUM AND MAGNESIUM PROTOCOLS, HUMULIN R SLIDING SCALE, AND HER HOME MEDICATIONS WERE RESUMED. TODAY, WE WILL ADMINISTER ACTEMRA 400MG IV X 1 DOSE. OTHERWISE, WE WILL CONTINUE WITH CURRENT PLAN OF CARE. WE WILL ENCOURAGE HER TO USE THE BIPAP MUCH TOLERATED. WE PLAN TO FOLLOW UP WITH AM LABS, CHEST XRAY, ABG, AND CONTINUE TO MONITOR. - Past Medical Family Social History Past Med/Fam/Surg Hx: No changes since H&P Allergies: Allergies Penicillins Allergy (Verified 12/24/19 21:21) - Review of Systems ROS: No change since H&P - Vital Signs and I&O's Vital Signs: Temperature 98.8 F Pulse Rate 62 Respiratory Rate 18 Blood Pressure 106/63 O2 Sat by Pulse Oximetry 90 Intake and Output: Intake & Output 12/27/19 12/28/19 12/29/19 12/30/19 11:59 11:59 11:59 11:59 Intake Total 4167 / 4167 3286 / 3286 2397 / 2397 1724 / 1724 Output Total 1825 / 1825 3000 / 3000 Balance 4167 / 4167 3286 / 3286 572 / 572 -1276 / -1276 - Physical Exam Oriented: Normal Eyes: Normal Ear: Normal Nose: Normal Throat: Normal Respiratory: Generalized, Diminished Cardiovascular: Normal : Normal Auscultation: Bowel Sounds: Normal Tenderness: Normal Skin: Normal Musculoskeletal: Normal Psychiatric: Normal Mood Description: Calm Affect: Normal Speech Pattern: Clear, Appropriate - Laboratory and Diagnostics Result Diagrams: 12/30/19 04:20 12/30/19 04:20 Labs: 12/24/19 21:38 Blood Blood Culture - Final 12/24/19 21:42 Blood Blood Culture - Final 12/27/19 19:58 Sputum - Expectorated Sputum Sputum Culture - Final 12/27/19 19:58 Sputum - Expectorated Sputum - Final Laboratory WBC 8.8 X10^3/uL (3.6-10.0) 12/30/19 04:20 RBC 4.27 X10^6/uL (3.5-5.4) 12/30/19 04:20 Hgb 12.5 g/dL (12.0-16.0) 12/30/19 04:20 Hct 37.7 % (36.0-47.0) 12/30/19 04:20 MCV 88.3 fL (80.0-100.0) 12/30/19 04:20 MCH 29.3 pg (27.0-34.0) 12/30/19 04:20 MCHC 33.2 g/dL (33.0-35.0) 12/30/19 04:20 RDW 14.6 % (11.6-16.5) 12/30/19 04:20 Plt Count 253 X10^3/uL (150.0-450.0) 12/30/19 04:20 Plt Count Comment Adequate (ADEQUATE) 12/26/19 04:35 MPV 9.1 fL (7.4-11.0) 12/30/19 04:20 Neut % (Auto) 87.7 % (42.0-75.0) H 12/30/19 04:20 Lymph % (Auto) 5.9 % (21.0-51.0) L 12/30/19 04:20 [place] % (Auto) 6.3 % (0.0-13.0) 12/30/19 04:20 Eos % (Auto) 0.0 % (0.9-2.9) L 12/30/19 04:20 Baso % (Auto) 0.1 % (0.2-1.0) L 12/30/19 04:20 Neut # (Auto) 7.7 x10^3/uL (2.2-4.8) H 12/30/19 04:20 Lymph # (Auto) 0.5 X10^3/uL (1.3-2.9) L 12/30/19 04:20 [place] # (Auto) 0.6 x10^3/uL (0.3-0.8) 12/30/19 04:20 Eos # (Auto) 0.0 x10^3/uL (0.0-0.2) 12/30/19 04:20 Baso # (Auto) 0.0 X10^3/uL (0.0-0.1) 12/30/19 04:20 Absolute Nucleated RBC 0.0 /100WBC 12/30/19 04:20 Total Counted 100 12/26/19 04:35 Neutrophils % (Manual) 92 % (39-76) H 12/26/19 04:35 Band Neutrophils % 3 % (0-10) 12/26/19 04:35 Lymphocytes % (Manual) 4 % (13-43) L 12/26/19 04:35 Monocytes % (Manual) 1 % (4-9) L 12/26/19 04:35 Plt Morphology Comment Normal (NORMAL) 12/26/19 04:35 RBC Morphology Normal (NORMAL) 12/26/19 04:35 D-Dimer < 0.27 ug/ml (0.0-0.57) 12/28/19 04:50 Sample Site Rr 12/30/19 05:00 ABG pH 7.570 (7.35-7.45) H* 12/30/19 05:00 ABG pCO2 46.0 mmHg (35.0-45.0) H 12/30/19 05:00 ABG pO2 60.0 mmHg (80.0-100.0) L 12/30/19 05:00 ABG HCO3 42.1 mmol/L (22-26) H* 12/30/19 05:00 ABG O2 Saturation 94.0 % (90-100) 12/30/19 05:00 ABG Base Excess 17.9 mmol/L (-2.0-2.0) H 12/30/19 05:00 Fausto Test Pos 12/30/19 05:00 A-a Gradient 596.0 mmHg 12/30/19 05:00 FiO2 100.0 12/30/19 05:00 Blood Gas Comments Tolerated well 12/30/19 05:00 Sodium 132 mmol/L (136-145) L 12/30/19 04:20 Corrected Sodium 134 mmol/L (136-145) L 12/30/19 04:20 Potassium 3.2 mmol/L (3.5-5.1) L 12/30/19 04:20 Chloride 92 mmol/L (98-107) L 12/30/19 04:20 Carbon Dioxide 34.2 mmol/L (21-32) H 12/30/19 04:20 BUN 43 mg/dL (7-18) H 12/30/19 04:20 Creatinine 1.00 mg/dL (0.55-1.02) 12/30/19 04:20 Est GFR (MDRD) Af Amer > 60 (>60) 12/30/19 04:20 Est GFR (MDRD) Non-Af > 60 (>60) 12/30/19 04:20 Glucose 200 mg/dL (65-99) H 12/30/19 04:20 POC Glucose (mg/dL) 268 mg/dL (65-99) H 12/29/19 20:57 Calcium 8.3 mg/dL (8.5-10.1) L 12/30/19 04:20 Corrected Calcium 9.7 mg/dL (8.5-10.1) 12/30/19 04:20 Magnesium 2.7 mg/dL (1.7-2.9) 12/29/19 04:40 Ferritin 640 ng/mL (8-252) H 12/30/19 04:20 Total Bilirubin 0.60 mg/dL (0.2-1.0) 12/30/19 04:20 AST 57 Units/L (15-37) H 12/30/19 04:20 ALT 143 Units/L (12-78) H 12/30/19 04:20 Alkaline Phosphatase 76 Units/L (46-116) 12/30/19 04:20 C-Reactive Protein 57.70 mg/L (0-3.0) H 12/30/19 04:20 B-Natriuretic Peptide 50.8 pg/mL (0-79) 12/27/19 04:35 Total Protein 7.0 g/dL (6.4-8.2) 12/30/19 04:20 Albumin 2.3 g/dL (3.4-5.0) L 12/30/19 04:20 Globulin 4.7 g/dL (2.5-4.5) H 12/30/19 04:20 Albumin/Globulin Ratio 0.5 Ratio (1.1-2.1) L 12/30/19 04:20 Blood Type O POSITIVE 12/24/19 21:42 - Plan (1) Pneumonia due to 2019 novel coronavirus Status: Acute Plan: SUPPLEMENTAL OXYGEN, BIPAP, REMDESIVIR 100MG IV DAILY, LEVAQUIN 750MG IV DAILY, 1/2NS AT 75 ML/HR, SOLU-MEDROL 80MG IV Q8H, DUONEBS QID, PULMICORT NEBS BID, TUSSIONEX 5ML PO Q12H, ROBITUSSIN DM 10 ML PO QID, THE POTASSIUM AND MAG NESIUM PROTOCOLS, HUMULIN R SLIDING SCALE, AND HER HOME MEDICATIONS WERE RESUMED, LASIX 40MG IV Q12H (2) COVID-19 Status: Acute (3) Hyperglycemia Status: Acute (4) Hypokalemia Status: Acute (5) HTN (hypertension) Status: Chronic Qualifiers: Hypertension type: essential hypertension
[2019-12-30] MEDS: HumuLIN R SC PRN ×3 (12:34→22:31)
[2019-12-30] MEDS: COLACE CAP 100 MG PO SCH (21:30)
[2019-12-30] MEDS: LEVAQUIN PREMIX IV 750 MG 750 MG/150 ML BAG IV SCH (22:00)
[2019-12-30] MEDS: XANAX PO PRN (22:30)
[2019-12-31 05:10] LABS: BASOPHILS % (AUTO) 0.2 % (0.2-1.0); HEMATOCRIT 38.1 % (36.0-47.0); HEMOGLOBIN 12.8 g/dL (12.0-16.0); LYMPHOCYTES # (AUTO) 0.6 X10^3/uL (1.3-2.9); LYMPHOCYTES % (AUTO) 9.6 % (21.0-51.0); MEAN CORPUSCULAR HEMOGLOBIN 29.2 pg (27.0-34.0); MEAN CORPUSCULAR HGB CONC 33.7 g/dL (33.0-35.0); MEAN CORPUSCULAR VOLUME 86.7 fL (80.0-100.0); MEAN PLATELET VOLUME 8.8 fL (7.4-11.0); MONOCYTES # (AUTO) 0.5 x10^3/uL (0.3-0.8); NEUTROPHILS # (AUTO) 5.5 x10^3/uL (2.2-4.8); NEUTROPHILS % (AUTO) 83.2 % (42.0-75.0); PLATELET COUNT 249 X10^3/uL (150.0-450.0); RED BLOOD COUNT 4.39 X10^6/uL (3.5-5.4); RED CELL DISTRIBUTION WIDTH 14.3 % (11.6-16.5); WHITE BLOOD COUNT 6.6 X10^3/uL (3.6-10.0)
--- NOTE | 2019-12-31 05:13 | RAD ---
HISTORYSOBSTUDYAP [id number]/08/2020FINDINGSContinued cardiomegaly with essentially similar extent and distribut ion of bilateral airspace disease. No evidence for complicating pneumothorax or developing pleural ef fusion.IMPRESSIONCardiomegaly and bilateral infiltrates/pneumonia. No significant change since 1 day earlier.Electronically signed by: IKER MONTOYA (Dec 31, 2019 05:13:37)
[2019-12-31 05:30] LABS: ALANINE AMINOTRANSFERASE 167 Units/L (12-78); ALBUMIN 2.2 g/dL (3.4-5.0); ALKALINE PHOSPHATASE 77 Units/L (46-116); ASPARTATE AMINO TRANSFERASE 50 Units/L (15-37); BLOOD UREA NITROGEN 39 mg/dL (7-18); CALCIUM 8.2 mg/dL (8.5-10.1); CARBON DIOXIDE 35.7 mmol/L (21-32); CHLORIDE 93 mmol/L (98-107); COR CA(FOR HYPOALB) 9.6 mg/dL (8.5-10.1); COR NA(FOR HYPERGLY) 136 mmol/L (136-145); CREATININE 0.86 mg/dL (0.55-1.02); SODIUM 134 mmol/L (136-145); TOTAL PROTEIN 6.9 g/dL (6.4-8.2); eGFR NON BLACK RACES > 60 (>60)
[2019-12-31] MEDS: SOLU-Medrol 40 MG VIAL IVP SCH ×3 (06:23→21:32)
[2019-12-31] MEDS: TESSALON PERLES PO SCH ×3 (06:24→21:32)
[2019-12-31] MEDS: HumuLIN R SC PRN ×4 (06:24→21:33)
[2019-12-31 07:17] LABS: ABG BASE EXCESS 17.8 mmol/L (-2.0-2.0)
[2019-12-31 07:19] LABS: ABG HCO3 41.2 mmol/L (22-26)
[2019-12-31 07:20] LABS: ABG ALLEN TEST POS
[2019-12-31] MEDS: ASPIRIN 81 MG CHEWTAB PO SCH (09:01)
[2019-12-31] MEDS: HYZAAR 50/12.5 MG PO SCH ×3 (09:02→21:28)
[2019-12-31] MEDS: VSL#3 PO SCH (09:03)
[2019-12-31] MEDS: ZYLOPRIM PO SCH (09:03)
[2019-12-31] MEDS: LASIX IVP SCH ×2 (09:04→21:28)
[2019-12-31] MEDS: MILK OF MAGNESIA PO SCH ×2 (09:08→09:52)
[2019-12-31] MEDS: ROBITUSSIN DM PO SCH ×4 (09:09→21:31)
[2019-12-31] MEDS: TOPROL XL PO SCH (09:09)
[2019-12-31] MEDS: REMDESIVIR (INVESTIGATIONAL DRUG GS-5734) 100 MG in NS 250 ML IV 250 ML IV SCH (09:10)
[2019-12-31] MEDS: LOVENOX INJ 40 MG SYR SC SCH (09:10)
[2019-12-31] MEDS: PROTONIX INJ 40 MG VIAL IVP SCH ×2 (09:10→21:31)
[2019-12-31] MEDS: KLOR-CON PO PRN (09:12)
[2019-12-31] MEDS ORDERED: TUSSIONEX PENNKINETIC SUSP ONE (09:14)
[2019-12-31] MEDS: PULMICORT NEB TX 0.5 MG NEB SCH ×2 (09:30→21:39)
[2019-12-31] MEDS: DUONEB 0.5 MG/3 MG (3 mL) NEB SCH ×4 (09:30→21:39)
[2019-12-31] MEDS: TUSSIONEX PENNKINETIC SUSP PO SCH ×2 (09:51→21:31)
[2019-12-31] MEDS: OLOPATADINE SCH ×2 (09:56→21:28)
[2019-12-31] MEDS: K-DUR TAB 20 MEQ PO PRN (12:00)
[2019-12-31] MEDS: COLACE CAP 100 MG PO SCH (21:27)
[2019-12-31] MEDS: XANAX PO PRN (22:10)
[2019-12-31] MEDS: LEVAQUIN PREMIX IV 750 MG 750 MG/150 ML BAG IV SCH (22:10)
--- NOTE | 2020-01-01 05:24 | RAD ---
HISTORYSOB pneumoniaSTUDYAP [id number]/09/2020FINDINGSPersistent heart enlargement. Pulmonary infiltrates are present but improving. There is no new consolidation, complicating pneumothorax or developing pleural effusion.IM PRESSIONInterval improvement in bilateral pulmonary infiltrates.Electronically signed by: IKER WOODS (Jan 01, 2020 05:24:33)
[2020-01-01 05:40] LABS: BASOPHILS % (AUTO) 0.2 % (0.2-1.0); HEMATOCRIT 37.9 % (36.0-47.0); HEMOGLOBIN 12.9 g/dL (12.0-16.0); LYMPHOCYTES # (AUTO) 0.6 X10^3/uL (1.3-2.9); LYMPHOCYTES % (AUTO) 8.3 % (21.0-51.0); MEAN CORPUSCULAR HEMOGLOBIN 29.5 pg (27.0-34.0); MEAN PLATELET VOLUME 8.8 fL (7.4-11.0); MONOCYTES # (AUTO) 0.4 x10^3/uL (0.3-0.8); NEUTROPHILS # (AUTO) 6.4 x10^3/uL (2.2-4.8); NEUTROPHILS % (AUTO) 85.5 % (42.0-75.0); PLATELET COUNT 273 X10^3/uL (150.0-450.0); RED BLOOD COUNT 4.36 X10^6/uL (3.5-5.4); RED CELL DISTRIBUTION WIDTH 14.5 % (11.6-16.5); WHITE BLOOD COUNT 7.5 X10^3/uL (3.6-10.0)
[2020-01-01 05:53] LABS: ALANINE AMINOTRANSFERASE 146 Units/L (12-78); ALBUMIN 2.2 g/dL (3.4-5.0); ALKALINE PHOSPHATASE 82 Units/L (46-116); ASPARTATE AMINO TRANSFERASE 32 Units/L (15-37); BLOOD UREA NITROGEN 38 mg/dL (7-18); CALCIUM 8.3 mg/dL (8.5-10.1); CARBON DIOXIDE 35.2 mmol/L (21-32); CHLORIDE 95 mmol/L (98-107); COR CA(FOR HYPOALB) 9.7 mg/dL (8.5-10.1); COR NA(FOR HYPERGLY) 138 mmol/L (136-145); CREATININE 0.87 mg/dL (0.55-1.02); SODIUM 135 mmol/L (136-145); TOTAL PROTEIN 6.7 g/dL (6.4-8.2); eGFR NON BLACK RACES > 60 (>60)
[2020-01-01] MEDS: SOLU-Medrol 40 MG VIAL IVP SCH ×3 (06:01→21:17)
[2020-01-01] MEDS: TESSALON PERLES PO SCH ×3 (06:01→22:11)
[2020-01-01] MEDS: HumuLIN R SC PRN ×6 (06:09→20:30)
[2020-01-01] MEDS: DUONEB 0.5 MG/3 MG (3 mL) NEB SCH ×4 (08:25→20:45)
[2020-01-01] MEDS: PULMICORT NEB TX 0.5 MG NEB SCH ×2 (08:25→20:45)
[2020-01-01] MEDS: ASPIRIN 81 MG CHEWTAB PO SCH (09:14)
[2020-01-01] MEDS: LASIX IVP SCH ×2 (09:15→20:08)
[2020-01-01] MEDS: HYZAAR 50/12.5 MG PO SCH ×2 (09:15→20:07)
[2020-01-01] MEDS: ROBITUSSIN DM PO SCH ×4 (09:21→20:07)
[2020-01-01] MEDS: OLOPATADINE SCH ×2 (09:21→20:08)
[2020-01-01] MEDS: ZYLOPRIM PO SCH (09:22)
[2020-01-01] MEDS: PROTONIX INJ 40 MG VIAL IVP SCH ×2 (09:22→20:08)
[2020-01-01] MEDS: REMDESIVIR (INVESTIGATIONAL DRUG GS-5734) 100 MG in NS 250 ML IV 250 ML IV SCH (09:22)
[2020-01-01] MEDS: LOVENOX INJ 40 MG SYR SC SCH (09:23)
[2020-01-01] MEDS: TOPROL XL PO SCH (09:31)
[2020-01-01] MEDS: VSL#3 PO SCH (09:32)
[2020-01-01 09:33] VITALS: BMI 42.4
[2020-01-01] MEDS: TUSSIONEX PENNKINETIC SUSP PO SCH ×2 (09:33→20:07)
[2020-01-01] MEDS: K-DUR TAB 20 MEQ PO PRN (09:46)
[2020-01-01] MEDS: MILK OF MAGNESIA PO SCH ×2 (14:23→20:08)
[2020-01-01] MEDS: COLACE CAP 100 MG PO SCH (20:06)
[2020-01-01] MEDS: XANAX PO PRN (22:12)
[2020-01-01] MEDS: LEVAQUIN PREMIX IV 750 MG 750 MG/150 ML BAG IV SCH (22:12)
[2020-01-02 05:13] LABS: BASOPHILS % (AUTO) 0.2 % (0.2-1.0); HEMATOCRIT 38.7 % (36.0-47.0); HEMOGLOBIN 12.7 g/dL (12.0-16.0); LYMPHOCYTES # (AUTO) 0.5 X10^3/uL (1.3-2.9); LYMPHOCYTES % (AUTO) 6.7 % (21.0-51.0); MEAN CORPUSCULAR HGB CONC 32.8 g/dL (33.0-35.0); MEAN CORPUSCULAR VOLUME 88.7 fL (80.0-100.0); MEAN PLATELET VOLUME 9.3 fL (7.4-11.0); MONOCYTES # (AUTO) 0.4 x10^3/uL (0.3-0.8); MONOCYTES % (AUTO) 5.6 % (0.0-13.0); NEUTROPHILS # (AUTO) 6.7 x10^3/uL (2.2-4.8); NEUTROPHILS % (AUTO) 87.5 % (42.0-75.0); PLATELET COUNT 236 X10^3/uL (150.0-450.0); RED BLOOD COUNT 4.36 X10^6/uL (3.5-5.4); RED CELL DISTRIBUTION WIDTH 14.6 % (11.6-16.5); WHITE BLOOD COUNT 7.6 X10^3/uL (3.6-10.0)
[2020-01-02 05:26] LABS: ALANINE AMINOTRANSFERASE 134 Units/L (12-78); ALBUMIN 2.3 g/dL (3.4-5.0); ALKALINE PHOSPHATASE 83 Units/L (46-116); ASPARTATE AMINO TRANSFERASE 26 Units/L (15-37); BLOOD UREA NITROGEN 39 mg/dL (7-18); CARBON DIOXIDE 34.2 mmol/L (21-32); CHLORIDE 95 mmol/L (98-107); COR CA(FOR HYPOALB) 9.4 mg/dL (8.5-10.1); COR NA(FOR HYPERGLY) 139 mmol/L (136-145); CREATININE 0.91 mg/dL (0.55-1.02); SODIUM 134 mmol/L (136-145); TOTAL PROTEIN 6.5 g/dL (6.4-8.2); eGFR NON BLACK RACES > 60 (>60)
[2020-01-02] MEDS: SOLU-Medrol 40 MG VIAL IVP SCH ×3 (05:41→21:10)
[2020-01-02] MEDS: TESSALON PERLES PO SCH ×3 (05:42→21:10)
[2020-01-02] MEDS: HumuLIN R SC PRN ×3 (05:54→23:40)
--- NOTE | 2020-01-02 06:07 | RAD ---
HISTORYShortness of breathSTUDYChest AP [id number]/10/2020FINDINGSHypo inflation accentuates the heart size. It is still likely mildly enlarged. Bilateral pulmonary infiltrates are unchanged from the prior examination. No pleural effusions are identified. Bony thorax is unremarkable.IMPRESSIONNo change bilateral infiltrates when compared to the prior examinationNo change mild cardiomegaly when compared with the prior examinationElectronically signed by: LEON SALAZAR (Jan 02, 2020 06:06:38)
[2020-01-02] MEDS: MICRO K EXTEN CAP 10 MEQ PO PRN (06:21)
[2020-01-02] MEDS: PULMICORT NEB TX 0.5 MG NEB SCH ×2 (08:15→21:41)
[2020-01-02] MEDS: DUONEB 0.5 MG/3 MG (3 mL) NEB SCH ×4 (08:15→21:41)
[2020-01-02] MEDS: ASPIRIN 81 MG CHEWTAB PO SCH (09:33)
[2020-01-02] MEDS: PROTONIX INJ 40 MG VIAL IVP SCH ×2 (09:34→20:19)
[2020-01-02] MEDS: LASIX IVP SCH ×2 (09:34→20:30)
[2020-01-02] MEDS: OLOPATADINE SCH ×2 (09:35→20:19)
[2020-01-02] MEDS: MILK OF MAGNESIA PO SCH ×3 (09:35→20:30)
[2020-01-02] MEDS: LOVENOX INJ 40 MG SYR SC SCH (09:35)
[2020-01-02] MEDS: TOPROL XL PO SCH (09:36)
[2020-01-02] MEDS: REMDESIVIR (INVESTIGATIONAL DRUG GS-5734) 100 MG in NS 250 ML IV 250 ML IV SCH (09:36)
[2020-01-02] MEDS: ZYLOPRIM PO SCH (09:37)
[2020-01-02] MEDS: ROBITUSSIN DM PO SCH ×4 (09:37→20:28)
[2020-01-02] MEDS: VSL#3 PO SCH (09:37)
[2020-01-02] MEDS: HYZAAR 50/12.5 MG PO SCH ×2 (10:13→20:30)
[2020-01-02] MEDS: TUSSIONEX PENNKINETIC SUSP PO SCH ×4 (10:15→20:19)
[2020-01-02 14:31] LABS: ABG BASE EXCESS 13.5 mmol/L (-2.0-2.0)
[2020-01-02 14:33] LABS: ABG HCO3 36.6 mmol/L (22-26)
[2020-01-02 16:01] LABS: ABG BASE EXCESS 12.5 mmol/L (-2.0-2.0)
[2020-01-02 16:02] LABS: ABG ALLEN TEST POS; ABG HCO3 35.8 mmol/L (22-26)
[2020-01-02] MEDS: XANAX PO PRN ×2 (16:18→22:55)
[2020-01-02] MEDS: COLACE CAP 100 MG PO SCH (20:18)
[2020-01-02] MEDS: LEVAQUIN PREMIX IV 750 MG 750 MG/150 ML BAG IV SCH (22:01)
[2020-01-03 05:22] LABS: BASOPHILS % (AUTO) 0.6 % (0.2-1.0); HEMATOCRIT 39.6 % (36.0-47.0); HEMOGLOBIN 13.1 g/dL (12.0-16.0); LYMPHOCYTES # (AUTO) 0.6 X10^3/uL (1.3-2.9); MEAN CORPUSCULAR HEMOGLOBIN 29.2 pg (27.0-34.0); MEAN CORPUSCULAR VOLUME 88.5 fL (80.0-100.0); MEAN PLATELET VOLUME 9.3 fL (7.4-11.0); MONOCYTES # (AUTO) 0.4 x10^3/uL (0.3-0.8); MONOCYTES % (AUTO) 4.9 % (0.0-13.0); NEUTROPHILS # (AUTO) 7.1 x10^3/uL (2.2-4.8); NEUTROPHILS % (AUTO) 87.5 % (42.0-75.0); PLATELET COUNT 250 X10^3/uL (150.0-450.0); RED BLOOD COUNT 4.48 X10^6/uL (3.5-5.4); RED CELL DISTRIBUTION WIDTH 14.7 % (11.6-16.5); WHITE BLOOD COUNT 8.2 X10^3/uL (3.6-10.0)
[2020-01-03] MEDS: TESSALON PERLES PO SCH ×3 (05:24→21:16)
[2020-01-03] MEDS: SOLU-Medrol 40 MG VIAL IVP SCH ×3 (05:24→21:17)
--- NOTE | 2020-01-03 05:26 | RAD ---
HISTORYSOBSTUDYAP [id number]/11/2020FINDINGSContinued cardiomegaly and no change in extent or distribution of bi lateral infiltrates. There is no new consolidation, complicating extrapulmonary air or pleural fluid. IMPRESSIONNo change since 1 day earlier.Electronically signed by: IKER MONTOYA (Jan 03, 2020 05:26: 04)
[2020-01-03 05:35] LABS: ALANINE AMINOTRANSFERASE 106 Units/L (12-78); ALBUMIN 2.4 g/dL (3.4-5.0); ALKALINE PHOSPHATASE 81 Units/L (46-116); ASPARTATE AMINO TRANSFERASE 19 Units/L (15-37); BLOOD UREA NITROGEN 36 mg/dL (7-18); CALCIUM 8.1 mg/dL (8.5-10.1); CARBON DIOXIDE 35.3 mmol/L (21-32); CHLORIDE 94 mmol/L (98-107); COR CA(FOR HYPOALB) 9.4 mg/dL (8.5-10.1); COR NA(FOR HYPERGLY) 137 mmol/L (136-145); CREATININE 0.87 mg/dL (0.55-1.02); SODIUM 133 mmol/L (136-145); TOTAL PROTEIN 6.6 g/dL (6.4-8.2); eGFR NON BLACK RACES > 60 (>60)
[2020-01-03] MEDS: HumuLIN R SC PRN ×4 (05:46→21:20)
[2020-01-03] MEDS: PULMICORT NEB TX 0.5 MG NEB SCH ×2 (08:08→22:25)
[2020-01-03] MEDS: DUONEB 0.5 MG/3 MG (3 mL) NEB SCH ×4 (08:08→22:25)
[2020-01-03 09:03] LABS: ABG BASE EXCESS 15.7 mmol/L (-2.0-2.0)
[2020-01-03 09:05] LABS: ABG ALLEN TEST POS
[2020-01-03] MEDS: ASPIRIN 81 MG CHEWTAB PO SCH (09:16)
[2020-01-03] MEDS: HYZAAR 50/12.5 MG PO SCH ×2 (09:16→21:19)
[2020-01-03] MEDS: LASIX IVP SCH ×2 (09:17→21:18)
[2020-01-03] MEDS: LOVENOX INJ 40 MG SYR SC SCH (09:17)
[2020-01-03] MEDS: OLOPATADINE SCH ×2 (09:18→21:19)
[2020-01-03] MEDS: MILK OF MAGNESIA PO SCH ×2 (09:18→21:18)
[2020-01-03] MEDS: PROTONIX INJ 40 MG VIAL IVP SCH ×2 (09:18→21:17)
[2020-01-03] MEDS: ROBITUSSIN DM PO SCH ×4 (09:19→21:16)
[2020-01-03] MEDS: REMDESIVIR (INVESTIGATIONAL DRUG GS-5734) 100 MG in NS 250 ML IV 250 ML IV SCH (09:19)
[2020-01-03] MEDS: TOPROL XL PO SCH (09:19)
[2020-01-03] MEDS: VSL#3 PO SCH (09:20)
[2020-01-03] MEDS: TUSSIONEX PENNKINETIC SUSP PO SCH ×2 (09:20→21:17)
[2020-01-03] MEDS: ZYLOPRIM PO SCH (09:20)
[2020-01-03] MEDS: ROCEPHIN VIAL 1 GRAM 1 G in NS 100 ML IV + SPIKE MINIBAG* 100 ML IV SCH (10:29)
--- NOTE | 2020-01-03 19:42 | PCM.PROG ---
Progress Note - Progress Note for Day of Date of Exam: 01/01/20 - Subjective Subjective: IS BEING TREATED FOR PNEUMONIA DUE TO COVID-19. TODAY, SHE IS ALERT AND ORIENTED, LYING IN BED ON MORNING ROUNDS. SHE CONTINUES WITH COMPLAINTS OF COUGH AND SHORTNESS OF BREATH TODAY. SHE CONTINUES TO UTILIZE HEATED HIGH FLOW OXYGEN AT 100% FI02 THIS MORNING. STATES TODAY SHE DOES FEEL BETTER. STATES SHE IS NOT HAS SOB. DENIES PRODUCTIVE COUGH. DENIES ANY OTHER COMPLAINTS. - Past Medical Family Social History Past Med/Fam/Surg Hx: No changes since H&P Allergies: Allergies Penicillins Allergy (Verified 12/24/19 21:21) - Review of Systems ROS: No change since H&P - Vital Signs and I&O's Vital Signs: Temperature 97.9 F Pulse Rate 71 Respiratory Rate 25 Blood Pressure 131/65 O2 Sat by Pulse Oximetry 94 Intake and Output: Intake & Output 12/31/19 01/01/20 01/02/20 01/03/20 23:59 23:59 23:59 23:59 Intake Total 1946 / 1946 1508 / 1508 1415 / 1415 1260 / 1260 Output Total 2400 / 2400 2700 / 2700 1800 / 1800 1200 / 1200 Balance -454 / -454 -1192 / -1192 -385 / -385 60 / 60 - Physical Exam Oriented: Normal Eyes: Normal Ear: Normal Nose: Normal Throat: Normal Respiratory: Generalized, Diminished Cardiovascular: Normal : Normal Auscultation: Bowel Sounds: Normal Tenderness: Normal Skin: Normal Musculoskeletal: Normal Psychiatric: Normal Mood Description: Calm Affect: Normal Speech Pattern: Clear, Appropriate - Laboratory and Diagnostics Result Diagrams: 01/03/20 04:51 01/03/20 04:51 Labs: 12/24/19 21:38 Blood Blood Culture - Final 12/24/19 21:42 Blood Blood Culture - Final 12/27/19 19:58 Sputum - Expectorated Sputum Sputum Culture - Final 12/27/19 19:58 Sputum - Expectorated Sputum - Final Laboratory WBC 8.2 X10^3/uL (3.6-10.0) 01/03/20 04:51 RBC 4.48 X10^6/uL (3.5-5.4) 01/03/20 04:51 Hgb 13.1 g/dL (12.0-16.0) 01/03/20 04:51 Hct 39.6 % (36.0-47.0) 01/03/20 04:51 MCV 88.5 fL (80.0-100.0) 01/03/20 04:51 MCH 29.2 pg (27.0-34.0) 01/03/20 04:51 MCHC 33.0 g/dL (33.0-35.0) 01/03/20 04:51 RDW 14.7 % (11.6-16.5) 01/03/20 04:51 Plt Count 250 X10^3/uL (150.0-450.0) 01/03/20 04:51 Plt Count Comment Adequate (ADEQUATE) 12/26/19 04:35 MPV 9.3 fL (7.4-11.0) 01/03/20 04:51 Neut % (Auto) 87.5 % (42.0-75.0) H 01/03/20 04:51 Lymph % (Auto) 7.0 % (21.0-51.0) L 01/03/20 04:51 [place] % (Auto) 4.9 % (0.0-13.0) 01/03/20 04:51 Eos % (Auto) 0.0 % (0.9-2.9) L 01/03/20 04:51 Baso % (Auto) 0.6 % (0.2-1.0) 01/03/20 04:51 Neut # (Auto) 7.1 x10^3/uL (2.2-4.8) H 01/03/20 04:51 Lymph # (Auto) 0.6 X10^3/uL (1.3-2.9) L 01/03/20 04:51 [place] # (Auto) 0.4 x10^3/uL (0.3-0.8) 01/03/20 04:51 Eos # (Auto) 0.0 x10^3/uL (0.0-0.2) 01/03/20 04:51 Baso # (Auto) 0.0 X10^3/uL (0.0-0.1) 01/03/20 04:51 Absolute Nucleated RBC 0.1 /100WBC 01/03/20 04:51 Total Counted 100 10/04/20 04:35 Neutrophils % (Manual) 92 % (39-76) H 12/26/19 04:35 Band Neutrophils % 3 % (0-10) 12/26/19 04:35 Lymphocytes % (Manual) 4 % (13-43) L 12/26/19 04:35 Monocytes % (Manual) 1 % (4-9) L 12/26/19 04:35 Plt Morphology Comment Normal (NORMAL) 12/26/19 04:35 RBC Morphology Normal (NORMAL) 12/26/19 04:35 D-Dimer < 0.27 ug/ml (0.0-0.57) 12/28/19 04:50 Sample Site Rrad 01/03/20 08:45 ABG pH 7.540 (7.35-7.45) H 01/03/20 08:45 ABG pCO2 47.0 mmHg (35.0-45.0) H 01/03/20 08:45 ABG pO2 80.0 mmHg (80.0-100.0) 01/03/20 08:45 ABG HCO3 40.2 mmol/L (22-26) H* 01/03/20 08:45 ABG O2 Saturation 97.0 % (90-100) 01/03/20 08:45 ABG Base Excess 15.7 mmol/L (-2.0-2.0) H 01/03/20 08:45 Fausto Test Pos 01/03/20 08:45 A-a Gradient 503.0 mmHg 01/03/20 08:45 FiO2 90.0 01/03/20 08:45 Blood Gas Comments Judie well 01/03/20 08:45 Sodium 133 mmol/L (136-145) L 01/03/20 04:51 Corrected Sodium 137 mmol/L (136-145) 01/03/20 04:51 Potassium 3.6 mmol/L (3.5-5.1) 01/03/20 04:51 Chloride 94 mmol/L (98-107) L 01/03/20 04:51 Carbon Dioxide 35.3 mmol/L (21-32) H 01/03/20 04:51 BUN 36 mg/dL (7-18) H 01/03/20 04:51 Creatinine 0.87 mg/dL (0.55-1.02) 01/03/20 04:51 Est GFR (MDRD) Af Amer > 60 (>60) 01/03/20 04:51 Est GFR (MDRD) Non-Af > 60 (>60) 01/03/20 04:51 Glucose 269 mg/dL (65-99) H 01/03/20 04:51 POC Glucose (mg/dL) 237 mg/dL (65-99) H 01/03/20 16:27 Calcium 8.1 mg/dL (8.5-10.1) L 01/03/20 04:51 Corrected Calcium 9.4 mg/dL (8.5-10.1) 01/03/20 04:51 Magnesium 2.6 mg/dL (1.7-2.9) 01/01/20 05:05 Ferritin 567 ng/mL (8-252) H 01/01/20 05:05 Total Bilirubin 0.50 mg/dL (0.2-1.0) 01/03/20 04:51 AST 19 Units/L (15-37) 01/03/20 04:51 ALT 106 Units/L (12-78) H 01/03/20 04:51 Alkaline Phosphatase 81 Units/L (46-116) 01/03/20 04:51 C-Reactive Protein 4.80 mg/L (0-3.0) H 01/03/20 04:51 B-Natriuretic Peptide 50.8 pg/mL (0-79) 12/27/19 04:35 Total Protein 6.6 g/dL (6.4-8.2) 01/03/20 04:51 Albumin 2.4 g/dL (3.4-5.0) L 01/03/20 04:51 Globulin 4.2 g/dL (2.5-4.5) 01/03/20 04:51 Albumin/Globulin Ratio 0.6 Ratio (1.1-2.1) L 01/03/20 04:51 Blood Type O POSITIVE 12/24/19 21:42 Radiology Reviewed: Yes EKG Reviewed: Yes - Plan (1) Acute respiratory failure due to COVID-19 Status: Acute Plan: MONITOR ABGS, HEATED HIGH FLOW OXYGEN (2) COVID-19 Status: Acute (3) Hyperglycemia Status: Acute Plan: MONITOR BS. ON STEROIDS. (4) Hypokalemia Status: Acute Plan: MONITOR POTASSIUM LEVELS. SUPPLEMENT NEEDED. (5) Pneumonia due to 2019 novel coronavirus Status: Acute Plan: SUPPLEMENTAL OXYGEN WITH HIGH FLOW O2, ANTIBIOTICS, STEROIDS, NEBS/INHALERS (6) HTN (hypertension) Status: Chronic Qualifiers: Hypertension type: essential hypertension
--- NOTE | 2020-01-03 19:45 | PCM.PROG ---
Progress Note - Progress Note for Day of Date of Exam: 01/02/20 - Subjective Subjective: IS BEING TREATED FOR PNEUMONIA DUE TO COVID-19. TODAY, SHE IS ALERT AND ORIENTED, SITTING UP IN CHAIR AT BEDSIDE.STATES THAT SHE IS FEELING BETTER. DENIES SOB AT PRESENT. IS LESS WINDED WHEN TALKING. SHE CONTINUES TO UTILIZE HEATED HIGH FLOW OXYGEN. PO2 ON 61% FI02 IS 45%. HAS FAMILY FRIEND WHO QUESTIONS ACCURACY OF ABG DUE TO HOW PATIENT LOOKS. PULSE OX READS 88-91%. DENIES ANY OTHER COMPLAINTS. - Past Medical Family Social History Past Med/Fam/Surg Hx: No changes since H&P Allergies: Allergies Penicillins Allergy (Verified 12/24/19 21:21) - Review of Systems ROS: No change since H&P - Vital Signs and I&O's Vital Signs: Temperature 97.9 F Pulse Rate 71 Respiratory Rate 25 Blood Pressure 131/65 O2 Sat by Pulse Oximetry 94 Intake and Output: Intake & Output 12/31/19 01/01/20 01/02/20 01/03/20 23:59 23:59 23:59 23:59 Intake Total 1946 / 1946 1508 / 1508 1415 / 1415 1260 / 1260 Output Total 2400 / 2400 2700 / 2700 1800 / 1800 1200 / 1200 Balance -454 / -454 -1192 / -1192 -385 / -385 60 / 60 - Physical Exam Oriented: Normal Eyes: Normal Ear: Normal Nose: Normal Throat: Normal Respiratory: Generalized, Diminished Cardiovascular: Normal : Normal Auscultation: Bowel Sounds: Normal Tenderness: Normal Skin: Normal Musculoskeletal: Normal Psychiatric: Normal Mood Description: Calm Affect: Normal Speech Pattern: Clear, Appropriate - Laboratory and Diagnostics Result Diagrams: 01/03/20 04:51 01/03/20 04:51 Labs: 12/24/19 21:38 Blood Blood Culture - Final 12/24/19 21:42 Blood Blood Culture - Final 12/27/19 19:58 Sputum - Expectorated Sputum Sputum Culture - Final 12/27/19 19:58 Sputum - Expectorated Sputum - Final Laboratory WBC 8.2 X10^3/uL (3.6-10.0) 01/03/20 04:51 RBC 4.48 X10^6/uL (3.5-5.4) 01/03/20 04:51 Hgb 13.1 g/dL (12.0-16.0) 01/03/20 04:51 Hct 39.6 % (36.0-47.0) 01/03/20 04:51 MCV 88.5 fL (80.0-100.0) 01/03/20 04:51 MCH 29.2 pg (27.0-34.0) 01/03/20 04:51 MCHC 33.0 g/dL (33.0-35.0) 01/03/20 04:51 RDW 14.7 % (11.6-16.5) 01/03/20 04:51 Plt Count 250 X10^3/uL (150.0-450.0) 01/03/20 04:51 Plt Count Comment Adequate (ADEQUATE) 12/26/19 04:35 MPV 9.3 fL (7.4-11.0) 01/03/20 04:51 Neut % (Auto) 87.5 % (42.0-75.0) H 01/03/20 04:51 Lymph % (Auto) 7.0 % (21.0-51.0) L 01/03/20 04:51 [place] % (Auto) 4.9 % (0.0-13.0) 01/03/20 04:51 Eos % (Auto) 0.0 % (0.9-2.9) L 01/03/20 04:51 Baso % (Auto) 0.6 % (0.2-1.0) 01/03/20 04:51 Neut # (Auto) 7.1 x10^3/uL (2.2-4.8) H 01/03/20 04:51 Lymph # (Auto) 0.6 X10^3/uL (1.3-2.9) L 01/03/20 04:51 [place] # (Auto) 0.4 x10^3/uL (0.3-0.8) 01/03/20 04:51 Eos # (Auto) 0.0 x10^3/uL (0.0-0.2) 01/03/20 04:51 Baso # (Auto) 0.0 X10^3/uL (0.0-0.1) 01/03/20 04:51 Absolute Nucleated RBC 0.1 /100WBC 01/03/20 04:51 Total Counted 100 12/26/19 04:35 Neutrophils % (Manual) 92 % (39-76) H 12/26/19 04:35 Band Neutrophils % 3 % (0-10) 12/26/19 04:35 Lymphocytes % (Manual) 4 % (13-43) L 12/26/19 04:35 Monocytes % (Manual) 1 % (4-9) L 12/26/19 04:35 Plt Morphology Comment Normal (NORMAL) 12/26/19 04:35 RBC Morphology Normal (NORMAL) 12/26/19 04:35 D-Dimer < 0.27 ug/ml (0.0-0.57) 12/28/19 04:50 Sample Site Rrad 01/03/20 08:45 ABG pH 7.540 (7.35-7.45) H 01/03/20 08:45 ABG pCO2 47.0 mmHg (35.0-45.0) H 01/03/20 08:45 ABG pO2 80.0 mmHg (80.0-100.0) 01/03/20 08:45 ABG HCO3 40.2 mmol/L (22-26) H* 01/03/20 08:45 ABG O2 Saturation 97.0 % (90-100) 01/03/20 08:45 ABG Base Excess 15.7 mmol/L (-2.0-2.0) H 01/03/20 08:45 Fausto Test Pos 01/03/20 08:45 A-a Gradient 503.0 mmHg 01/03/20 08:45 FiO2 90.0 01/03/20 08:45 Blood Gas Comments Judie well 01/03/20 08:45 Sodium 133 mmol/L (136-145) L 01/03/20 04:51 Corrected Sodium 137 mmol/L (136-145) 01/03/20 04:51 Potassium 3.6 mmol/L (3.5-5.1) 01/03/20 04:51 Chloride 94 mmol/L (98-107) L 01/03/20 04:51 Carbon Dioxide 35.3 mmol/L (21-32) H 01/03/20 04:51 BUN 36 mg/dL (7-18) H 01/03/20 04:51 Creatinine 0.87 mg/dL (0.55-1.02) 01/03/20 04:51 Est GFR (MDRD) Af Amer > 60 (>60) 01/03/20 04:51 Est GFR (MDRD) Non-Af > 60 (>60) 01/03/20 04:51 Glucose 269 mg/dL (65-99) H 01/03/20 04:51 POC Glucose (mg/dL) 237 mg/dL (65-99) H 01/03/20 16:27 Calcium 8.1 mg/dL (8.5-10.1) L 01/03/20 04:51 Corrected Calcium 9.4 mg/dL (8.5-10.1) 01/03/20 04:51 Magnesium 2.6 mg/dL (1.7-2.9) 01/01/20 05:05 Ferritin 567 ng/mL (8-252) H 01/01/20 05:05 Total Bilirubin 0.50 mg/dL (0.2-1.0) 01/03/20 04:51 AST 19 Units/L (15-37) 01/03/20 04:51 ALT 106 Units/L (12-78) H 01/03/20 04:51 Alkaline Phosphatase 81 Units/L (46-116) 01/03/20 04:51 C-Reactive Protein 4.80 mg/L (0-3.0) H 01/03/20 04:51 B-Natriuretic Peptide 50.8 pg/mL (0-79) 12/27/19 04:35 Total Protein 6.6 g/dL (6.4-8.2) 01/03/20 04:51 Albumin 2.4 g/dL (3.4-5.0) L 01/03/20 04:51 Globulin 4.2 g/dL (2.5-4.5) 01/03/20 04:51 Albumin/Globulin Ratio 0.6 Ratio (1.1-2.1) L 01/03/20 04:51 Blood Type O POSITIVE 12/24/19 21:42 - Plan (1) Acute respiratory failure due to COVID-19 Status: Acute Plan: MONITOR ABGS, HEATED HIGH FLOW OXYGEN (2) COVID-19 Status: Acute (3) Hyperglycemia Status: Acute Plan: MONITOR BS. ON STEROIDS. (4) Hypokalemia Status: Acute Plan: MONITOR POTASSIUM LEVELS. SUPPLEMENT NEEDED. (5) Pneumonia due to 2019 novel coronavirus Status: Acute Plan: SUPPLEMENTAL OXYGEN WITH HIGH FLOW O2, ANTIBIOTICS, STEROIDS, NEBS/INHALERS (6) HTN (hypertension) Status: Chronic Qualifiers: Hypertension type: essential hypertension
[2020-01-03] MEDS: COLACE CAP 100 MG PO SCH (21:16)
[2020-01-03] MEDS: LEVAQUIN PREMIX IV 750 MG 750 MG/150 ML BAG IV SCH (22:17)
[2020-01-03] MEDS: XANAX PO PRN (22:18)
[2020-01-04] MEDS: SOLU-Medrol 40 MG VIAL IVP SCH ×3 (05:25→20:21)
[2020-01-04] MEDS: TESSALON PERLES PO SCH ×3 (05:26→21:06)
[2020-01-04 05:28] LABS: BASOPHILS % (AUTO) 0.2 % (0.2-1.0); EOSINOPHILS % (AUTO) 0.1 % (0.9-2.9); HEMATOCRIT 39.2 % (36.0-47.0); HEMOGLOBIN 12.8 g/dL (12.0-16.0); LYMPHOCYTES # (AUTO) 0.8 X10^3/uL (1.3-2.9); LYMPHOCYTES % (AUTO) 8.5 % (21.0-51.0); MEAN CORPUSCULAR HGB CONC 32.8 g/dL (33.0-35.0); MEAN CORPUSCULAR VOLUME 88.5 fL (80.0-100.0); MEAN PLATELET VOLUME 9.5 fL (7.4-11.0); MONOCYTES # (AUTO) 0.4 x10^3/uL (0.3-0.8); MONOCYTES % (AUTO) 4.1 % (0.0-13.0); NEUTROPHILS # (AUTO) 8.1 x10^3/uL (2.2-4.8); NEUTROPHILS % (AUTO) 87.1 % (42.0-75.0); PLATELET COUNT 228 X10^3/uL (150.0-450.0); RED BLOOD COUNT 4.42 X10^6/uL (3.5-5.4); RED CELL DISTRIBUTION WIDTH 14.1 % (11.6-16.5); WHITE BLOOD COUNT 9.3 X10^3/uL (3.6-10.0)
[2020-01-04 05:43] LABS: ALANINE AMINOTRANSFERASE 84 Units/L (12-78); ALBUMIN 2.4 g/dL (3.4-5.0); ALKALINE PHOSPHATASE 80 Units/L (46-116); ASPARTATE AMINO TRANSFERASE 19 Units/L (15-37); BLOOD UREA NITROGEN 31 mg/dL (7-18); CALCIUM 8.1 mg/dL (8.5-10.1); CARBON DIOXIDE 35.7 mmol/L (21-32); CHLORIDE 94 mmol/L (98-107); COR CA(FOR HYPOALB) 9.4 mg/dL (8.5-10.1); COR NA(FOR HYPERGLY) 136 mmol/L (136-145); CREATININE 0.78 mg/dL (0.55-1.02); SODIUM 132 mmol/L (136-145); TOTAL PROTEIN 6.3 g/dL (6.4-8.2); eGFR NON BLACK RACES > 60 (>60)
[2020-01-04] MEDS: HumuLIN R SC PRN ×4 (06:04→21:07)
--- NOTE | 2020-01-04 06:05 | RAD ---
HISTORYShortness of breathSTUDYChest AP [id number] heart is enlarged. No congestive heart failure is noted. Bilateral interstitial and patchy ground-glass infiltrates are unchanged. No pleural effusions are identified. Bony thorax is unremarkable.IMPRESSIONNo change cardiomegaly without congestive heart failureNo change bilateral infiltratesElectronically signed by: LEON SALAZAR (Jan 04, 2020 06:05:34)
[2020-01-04] MEDS: K-DUR TAB 20 MEQ PO PRN (06:43)
[2020-01-04] MEDS: PULMICORT NEB TX 0.5 MG NEB SCH ×2 (09:25→21:20)
[2020-01-04] MEDS: DUONEB 0.5 MG/3 MG (3 mL) NEB SCH ×4 (09:25→21:20)
[2020-01-04] MEDS: LOVENOX INJ 40 MG SYR SC SCH (09:45)
[2020-01-04] MEDS: ROCEPHIN VIAL 1 GRAM 1 G in NS 100 ML IV + SPIKE MINIBAG* 100 ML IV SCH (09:45)
[2020-01-04] MEDS: PROTONIX INJ 40 MG VIAL IVP SCH ×2 (09:45→20:06)
[2020-01-04] MEDS: OLOPATADINE SCH ×2 (09:45→20:05)
[2020-01-04] MEDS: ASPIRIN 81 MG CHEWTAB PO SCH (09:45)
[2020-01-04] MEDS: ROBITUSSIN DM PO SCH ×4 (09:45→20:04)
[2020-01-04] MEDS: VSL#3 PO SCH (09:45)
[2020-01-04] MEDS: MILK OF MAGNESIA PO SCH ×2 (09:45→20:04)
[2020-01-04] MEDS: ZYLOPRIM PO SCH (09:45)
[2020-01-04] MEDS: LASIX IVP SCH (09:45)
[2020-01-04] MEDS ORDERED: MIRALAX POWDER (1 DOSE 17 G) ONE (09:49)
[2020-01-04] MEDS: HYZAAR 50/12.5 MG PO SCH ×2 (10:28→20:04)
[2020-01-04] MEDS: TOPROL XL PO SCH (10:53)
[2020-01-04] MEDS: TUSSIONEX PENNKINETIC SUSP PO SCH ×2 (10:54→20:07)
[2020-01-04] MEDS: MIRALAX POWDER (1 DOSE 17 G) PO SCH (10:55)
[2020-01-04 14:34] LABS: ABG BASE EXCESS 12.9 mmol/L (-2.0-2.0)
[2020-01-04 14:35] LABS: ABG ALLEN TEST POS; ABG HCO3 36.8 mmol/L (22-26)
[2020-01-04 15:02] LABS: ABG HCO3 40.2 mmol/L (22-26)
[2020-01-04] MEDS: COLACE CAP 100 MG PO SCH (20:03)
[2020-01-04] MEDS: LEVAQUIN PREMIX IV 750 MG 750 MG/150 ML BAG IV SCH (22:02)
[2020-01-04] MEDS: XANAX PO PRN (22:40)
[2020-01-05 05:22] LABS: BASOPHILS # (AUTO) 0.1 X10^3/uL (0.0-0.1); BASOPHILS % (AUTO) 0.5 % (0.2-1.0); EOSINOPHILS % (AUTO) 0.3 % (0.9-2.9); HEMATOCRIT 39.9 % (36.0-47.0); HEMOGLOBIN 13.1 g/dL (12.0-16.0); LYMPHOCYTES # (AUTO) 1.1 X10^3/uL (1.3-2.9); LYMPHOCYTES % (AUTO) 10.5 % (21.0-51.0); MEAN CORPUSCULAR HEMOGLOBIN 28.9 pg (27.0-34.0); MEAN CORPUSCULAR HGB CONC 32.9 g/dL (33.0-35.0); MEAN CORPUSCULAR VOLUME 87.8 fL (80.0-100.0); MEAN PLATELET VOLUME 9.4 fL (7.4-11.0); MONOCYTES # (AUTO) 0.3 x10^3/uL (0.3-0.8); MONOCYTES % (AUTO) 2.8 % (0.0-13.0); NEUTROPHILS # (AUTO) 8.8 x10^3/uL (2.2-4.8); NEUTROPHILS % (AUTO) 85.9 % (42.0-75.0); PLATELET COUNT 233 X10^3/uL (150.0-450.0); RED BLOOD COUNT 4.54 X10^6/uL (3.5-5.4); RED CELL DISTRIBUTION WIDTH 14.4 % (11.6-16.5); WHITE BLOOD COUNT 10.2 X10^3/uL (3.6-10.0)
[2020-01-05] MEDS: TESSALON PERLES PO SCH ×3 (05:34→21:06)
[2020-01-05 05:35] LABS: ALANINE AMINOTRANSFERASE 73 Units/L (12-78); ALBUMIN 2.5 g/dL (3.4-5.0); ALKALINE PHOSPHATASE 75 Units/L (46-116); ASPARTATE AMINO TRANSFERASE 16 Units/L (15-37); BLOOD UREA NITROGEN 29 mg/dL (7-18); CALCIUM 8.2 mg/dL (8.5-10.1); CHLORIDE 92 mmol/L (98-107); COR CA(FOR HYPOALB) 9.4 mg/dL (8.5-10.1); COR NA(FOR HYPERGLY) 135 mmol/L (136-145); CREATININE 0.74 mg/dL (0.55-1.02); SODIUM 131 mmol/L (136-145); TOTAL PROTEIN 6.4 g/dL (6.4-8.2); eGFR NON BLACK RACES > 60 (>60)
[2020-01-05] MEDS: HumuLIN R SC PRN ×4 (05:35→20:44)
--- NOTE | 2020-01-05 06:04 | RAD ---
STUDY: CHEST, 1 VIEWCOMPARISON: January 04, 2020HISTORY: SOBFINDINGS:Alveolar airspace disease is seen in the bilateral mid and lower lung zones similar in appearance to the prior study. Cardiomediastinal contour is stable. No pleural effusion or gross pneumothorax is seen. The trachea is midline.IMPRESSION:There is no significant change from prior study.Electronically signed by: Nawaf Garay (Jan 05, 2020 06:03:57)
[2020-01-05] MEDS: ASPIRIN 81 MG CHEWTAB PO SCH (08:34)
[2020-01-05] MEDS: VSL#3 PO SCH (08:34)
[2020-01-05] MEDS: MILK OF MAGNESIA PO SCH ×2 (08:35→20:11)
[2020-01-05] MEDS: ROBITUSSIN DM PO SCH ×4 (08:35→20:43)
[2020-01-05] MEDS: HYZAAR 50/12.5 MG PO SCH ×2 (08:36→20:42)
[2020-01-05] MEDS: TOPROL XL PO SCH (08:36)
[2020-01-05] MEDS: SOLU-Medrol 40 MG VIAL IVP SCH ×2 (08:37→20:43)
[2020-01-05] MEDS: PROTONIX INJ 40 MG VIAL IVP SCH ×2 (08:37→20:42)
[2020-01-05] MEDS: ROCEPHIN VIAL 1 GRAM 1 G in NS 100 ML IV + SPIKE MINIBAG* 100 ML IV SCH (08:38)
[2020-01-05] MEDS: LASIX IVP SCH (08:38)
[2020-01-05] MEDS: LOVENOX INJ 40 MG SYR SC SCH (08:50)
[2020-01-05] MEDS: ZYLOPRIM PO SCH (08:50)
[2020-01-05] MEDS: TUSSIONEX PENNKINETIC SUSP PO SCH ×2 (08:51→20:43)
[2020-01-05] MEDS: OLOPATADINE SCH ×2 (08:51→21:06)
[2020-01-05] MEDS: MIRALAX POWDER (1 DOSE 17 G) PO SCH (08:52)
[2020-01-05] MEDS: PULMICORT NEB TX 0.5 MG NEB SCH ×2 (09:55→21:25)
[2020-01-05] MEDS: DUONEB 0.5 MG/3 MG (3 mL) NEB SCH ×4 (09:55→21:25)
--- NOTE | 2020-01-05 10:49 | PCM.PROG ---
Progress Note - Progress Note for Day of Date of Exam: 01/05/20 - Subjective Subjective: IS BEING TREATED FOR PNEUMONIA DUE TO COVID-19. TODAY, SHE IS ALERT AND ORIENTED, LYING IN BED ON MORNING ROUNDS. SHE CONTINUES WITH COMPLAINTS OF SHORTNESS OF BREATH. SHE CONTINUES TO UTILIZE HEATED HIGH FLOW OXYGEN AT 50% FI02 THIS MORNING. SHE HAS UTILIZED THE BIPAP THROUGHOUT THE NIGHT. SHE REPORTS ONLY BEING ABLE TO SPEAK A FEW WORDS OR TAKE A FEW STEPS WITHOUT FEELING WINDED. SHE REPORTS SLIGHT IMPROVEMENT IN SYMPTOMS SINCE WE LAST SAW HER. ON EXAMINATION, HEART IS REGULAR IN RATE AND RHYTHM. BILATERAL LUNGS ARE NOTED WITH SCATTERED WHEEZING THROUGHOUT. ABDOMEN IS ROUND, SOFT, AND NON- TENDER WITH NORMAL BOWEL SOUNDS NOTED IN ALL QUADRANTS. HER VITALS THIS MORNING ARE: 97.7-78-24-93%HHF-151/78. LABS WERE OBTAINED. ABNORMAL LAB VALUES INCLUDE THE FOLLOWING: WBC 10.2, SODIUM 131, CHLORIDE 92, CARBON DIOXIDE 35.0, BUN 39, GLUCOSE 246, CALCIUM 8.2, ALBUMIN 2.5. BLOOD AND SPUTUM CULTURES ARE PENDING. AN ABG WAS OBTAINED THIS MORNING AND REVEALED: PH 7.600, PC02 42, P02 81, HC03 41.2, 02 SAT 98, BASE EXCESS 17.8, A-a GRADIENT 580, FI02 100.0. A CHEST XRAY WAS OBTAINED AND REVEALED: Alveolar airspace disease is seen in the bilateral mid and lower lung zones similar in appearance to the prior study. Cardiomediastinal contour is stable. No pleural effusion or gross pneumothorax is seen. The trachea is midline. SHE IS CURRENTLY RECEIVING LEVAQUIN 750MG IV DAILY, ROCEPHIN 1G IV DAILY, , SOLU-MEDROL 80MG IV Q12H, DUONEBS QID, PULMICORT NEBS BID, TUSSIONEX 5ML PO Q12H, ROBITUSSIN DM 10 ML PO QID, LASIX 20MG IV DAILY, THE POTASSIUM AND MAGNESIUM PROTOCOLS, HUMULIN R SLIDING SCALE, AND HER HOME MEDICATIONS WERE RESUMED. OTHERWISE, WE WILL CONTINUE WITH CURRENT PLAN OF CARE. WE PLAN TO FOLLOW UP WITH AM LABS, CHEST XRAY, ABG, AND CONTINUE TO MONITOR. - Past Medical Family Social History Past Med/Fam/Surg Hx: No changes since H&P Allergies: Allergies Penicillins Allergy (Verified 12/24/19 21:21) - Review of Systems ROS: No change since H&P - Vital Signs and I&O's Vital Signs: Temperature 97.7 F Pulse Rate 77 Respiratory Rate 14 Blood Pressure 159/77 O2 Sat by Pulse Oximetry 92 Intake and Output: Intake & Output 01/02/20 01/03/20 01/04/20 01/05/20 11:59 11:59 11:59 11:59 Intake Total 1543 / 1543 1490 / 1490 1900 / 1900 1782 / 1782 Output Total 2700 / 2700 1800 / 1800 2950 / 2950 2600 / 2600 Balance -1157 / -1157 -310 / -310 -1050 / -1050 -818 / -818 - Physical Exam Oriented: Normal Eyes: Normal Ear: Normal Nose: Normal Throat: Normal Respiratory: Generalized, Diminished Cardiovascular: Normal : Normal Auscultation: Bowel Sounds: Normal Tenderness: Normal Skin: Normal Musculoskeletal: Normal Psychiatric: Normal Mood Description: Calm Affect: Normal Speech Pattern: Clear, Appropriate - Laboratory and Diagnostics Result Diagrams: 01/05/20 04:53 01/05/20 04:53 Labs: 12/24/19 21:38 Blood Blood Culture - Final 12/24/19 21:42 Blood Blood Culture - Final 12/27/19 19:58 Sputum - Expectorated Sputum Sputum Culture - Final 12/27/19 19:58 Sputum - Expectorated Sputum - Final Laboratory WBC 10.2 X10^3/uL (3.6-10.0) H 01/05/20 04:53 RBC 4.54 X10^6/uL (3.5-5.4) 01/05/20 04:53 Hgb 13.1 g/dL (12.0-16.0) 01/05/20 04:53 Hct 39.9 % (36.0-47.0) 01/05/20 04:53 MCV 87.8 fL (80.0-100.0) 01/05/20 04:53 MCH 28.9 pg (27.0-34.0) 01/05/20 04:53 MCHC 32.9 g/dL (33.0-35.0) L 01/05/20 04:53 RDW 14.4 % (11.6-16.5) 01/05/20 04:53 Plt Count 233 X10^3/uL (150.0-450.0) 01/05/20 04:53 Plt Count Comment Adequate (ADEQUATE) 12/26/19 04:35 MPV 9.4 fL (7.4-11.0) 01/05/20 04:53 Neut % (Auto) 85.9 % (42.0-75.0) H 01/05/20 04:53 Lymph % (Auto) 10.5 % (21.0-51.0) L 01/05/20 04:53 Riley % (Auto) 2.8 % (0.0-13.0) 01/05/20 04:53 Eos % (Auto) 0.3 % (0.9-2.9) L 01/05/20 04:53 Baso % (Auto) 0.5 % (0.2-1.0) 01/05/20 04:53 Neut # (Auto) 8.8 x10^3/uL (2.2-4.8) H 01/05/20 04:53 Lymph # (Auto) 1.1 X10^3/uL (1.3-2.9) L 01/05/20 04:53 Riley # (Auto) 0.3 x10^3/uL (0.3-0.8) 01/05/20 04:53 Eos # (Auto) 0.0 x10^3/uL (0.0-0.2) 01/05/20 04:53 Baso # (Auto) 0.1 X10^3/uL (0.0-0.1) 01/05/20 04:53 Absolute Nucleated RBC 0.0 /100WBC 01/05/20 04:53 Total Counted 100 12/26/19 04:35 Neutrophils % (Manual) 92 % (39-76) H 12/26/19 04:35 Band Neutrophils % 3 % (0-10) 12/26/19 04:35 Lymphocytes % (Manual) 4 % (13-43) L 12/26/19 04:35 Monocytes % (Manual) 1 % (4-9) L 12/26/19 04:35 Plt Morphology Comment Normal (NORMAL) 12/26/19 04:35 RBC Morphology Normal (NORMAL) 12/26/19 04:35 D-Dimer < 0.27 ug/ml (0.0-0.57) 12/28/19 04:50 Sample Site Lr 01/04/20 12:29 ABG pH 7.540 (7.35-7.45) H 01/04/20 12:29 ABG pCO2 43.0 mmHg (35.0-45.0) 01/04/20 12:29 ABG pO2 64.0 mmHg (80.0-100.0) L 01/04/20 12:29 ABG HCO3 36.8 mmol/L (22-26) H* 01/04/20 12:29 ABG O2 Saturation 95.0 % (90-100) 01/04/20 12:29 ABG Base Excess 12.9 mmol/L (-2.0-2.0) H 01/04/20 12:29 Fausto Test Pos 01/04/20 12:29 A-a Gradient 239.0 mmHg 01/04/20 12:29 FiO2 50.0 01/04/20 12:29 Blood Gas Comments Pt on 50% fio2 hhf, 01/04/20 12:29 Sodium 131 mmol/L (136-145) L 01/05/20 04:53 Corrected Sodium 135 mmol/L (136-145) L 01/05/20 04:53 Potassium 4.0 mmol/L (3.5-5.1) 01/05/20 04:53 Chloride 92 mmol/L (98-107) L 01/05/20 04:53 Carbon Dioxide 35.0 mmol/L (21-32) H 01/05/20 04:53 BUN 29 mg/dL (7-18) H 01/05/20 04:53 Creatinine 0.74 mg/dL (0.55-1.02) 01/05/20 04:53 Est GFR (MDRD) Af Amer > 60 (>60) 01/05/20 04:53 Est GFR (MDRD) Non-Af > 60 (>60) 01/05/20 04:53 Glucose 246 mg/dL (65-99) H 01/05/20 04:53 POC Glucose (mg/dL) 246 mg/dL (65-99) H 01/05/20 04:51 Calcium 8.2 mg/dL (8.5-10.1) L 01/05/20 04:53 Corrected Calcium 9.4 mg/dL (8.5-10.1) 01/05/20 04:53 Magnesium 2.6 mg/dL (1.7-2.9) 01/01/20 05:05 Ferritin 567 ng/mL (8-252) H 01/01/20 05:05 Total Bilirubin 0.70 mg/dL (0.2-1.0) 01/05/20 04:53 AST 16 Units/L (15-37) 01/05/20 04:53 ALT 73 Units/L (12-78) 01/05/20 04:53 Alkaline Phosphatase 75 Units/L (46-116) 01/05/20 04:53 C-Reactive Protein 1.60 mg/L (0-3.0) 01/05/20 04:53 B-Natriuretic Peptide 50.8 pg/mL (0-79) 12/27/19 04:35 Total Protein 6.4 g/dL (6.4-8.2) 01/05/20 04:53 Albumin 2.5 g/dL (3.4-5.0) L 01/05/20 04:53 Globulin 3.9 g/dL (2.5-4.5) 01/05/20 04:53 Albumin/Globulin Ratio 0.6 Ratio (1.1-2.1) L 01/05/20 04:53 Blood Type O POSITIVE 12/24/19 21:42 - Plan (1) Pneumonia due to 2019 novel coronavirus Status: Acute Plan: SUPPLEMENTAL OXYGEN WITH HIGH FLOW O2, ANTIBIOTICS, STEROIDS, NEBS/INHALERS (2) COVID-19 Status: Acute (3) Hyperglycemia Status: Acute Plan: MONITOR BS. ON STEROIDS. (4) Hypokalemia Status: Acute Plan: MONITOR POTASSIUM LEVELS. SUPPLEMENT NEEDED. (5) HTN (hypertension) Status: Chronic Qualifiers: Hypertension type: essential hypertension
[2020-01-05 11:37] LABS: ABG BASE EXCESS 16.2 mmol/L (-2.0-2.0)
[2020-01-05 11:38] LABS: ABG ALLEN TEST POS; ABG HCO3 40.3 mmol/L (22-26)
[2020-01-05] MEDS ORDERED: NS 250 ML IV 250 ML IV ONE (20:08)
[2020-01-05] MEDS: COLACE CAP 100 MG PO SCH (20:42)
[2020-01-05] MEDS: LEVAQUIN PREMIX IV 750 MG 750 MG/150 ML BAG IV SCH (22:13)
[2020-01-05] MEDS: XANAX PO PRN (22:14)
[2020-01-06 05:17] LABS: BASOPHILS % (AUTO) 0.4 % (0.2-1.0); HEMATOCRIT 38.2 % (36.0-47.0); HEMOGLOBIN 12.6 g/dL (12.0-16.0); LYMPHOCYTES # (AUTO) 0.9 X10^3/uL (1.3-2.9); LYMPHOCYTES % (AUTO) 11.3 % (21.0-51.0); MEAN CORPUSCULAR HEMOGLOBIN 29.1 pg (27.0-34.0); MEAN CORPUSCULAR HGB CONC 33.1 g/dL (33.0-35.0); MEAN CORPUSCULAR VOLUME 87.8 fL (80.0-100.0); MEAN PLATELET VOLUME 9.6 fL (7.4-11.0); MONOCYTES # (AUTO) 0.2 x10^3/uL (0.3-0.8); MONOCYTES % (AUTO) 2.3 % (0.0-13.0); NEUTROPHILS # (AUTO) 6.9 x10^3/uL (2.2-4.8); PLATELET COUNT 191 X10^3/uL (150.0-450.0); RED BLOOD COUNT 4.34 X10^6/uL (3.5-5.4); RED CELL DISTRIBUTION WIDTH 14.7 % (11.6-16.5); WHITE BLOOD COUNT 8.1 X10^3/uL (3.6-10.0)
[2020-01-06 05:28] LABS: ALANINE AMINOTRANSFERASE 61 Units/L (12-78); ALBUMIN 2.5 g/dL (3.4-5.0); ALKALINE PHOSPHATASE 71 Units/L (46-116); ASPARTATE AMINO TRANSFERASE 14 Units/L (15-37); BLOOD UREA NITROGEN 23 mg/dL (7-18); CALCIUM 8.1 mg/dL (8.5-10.1); CARBON DIOXIDE 33.8 mmol/L (21-32); CHLORIDE 94 mmol/L (98-107); COR CA(FOR HYPOALB) 9.3 mg/dL (8.5-10.1); COR NA(FOR HYPERGLY) 136 mmol/L (136-145); CREATININE 0.67 mg/dL (0.55-1.02); SODIUM 132 mmol/L (136-145); TOTAL PROTEIN 6.1 g/dL (6.4-8.2); eGFR NON BLACK RACES > 60 (>60)
[2020-01-06] MEDS: TESSALON PERLES PO SCH (05:28)
[2020-01-06] MEDS: HumuLIN R SC PRN ×4 (05:29→21:19)
--- NOTE | 2020-01-06 06:36 | RAD ---
HISTORYSOBSTUDYCHEST, 1 [id number] view of the chestFINDINGSCardiac and mediastinal contours are stable. Stable multifocal bilateral airspace disease worse on the left. No definite pleural effusion or pneumothorax.IMPRESSIONNo significant change.Electronically signed by: Martínez Lomas (Jan 06, 2020 06:35:32)
[2020-01-06 07:04] LABS: ABG BASE EXCESS 13.3 mmol/L (-2.0-2.0)
[2020-01-06 07:06] LABS: ABG ALLEN TEST POS; ABG HCO3 36.6 mmol/L (22-26)
[2020-01-06] MEDS: ROCEPHIN VIAL 1 GRAM 1 G in NS 100 ML IV + SPIKE MINIBAG* 100 ML IV SCH (08:32)
[2020-01-06] MEDS: SOLU-Medrol 40 MG VIAL IVP SCH ×2 (08:33→21:18)
[2020-01-06] MEDS: PROTONIX INJ 40 MG VIAL IVP SCH ×2 (08:33→21:19)
[2020-01-06] MEDS: MILK OF MAGNESIA PO SCH ×2 (08:33→21:18)
[2020-01-06] MEDS: ASPIRIN 81 MG CHEWTAB PO SCH (08:33)
[2020-01-06] MEDS: VSL#3 PO SCH (08:34)
[2020-01-06] MEDS: OLOPATADINE SCH ×2 (08:34→21:18)
[2020-01-06] MEDS: ZYLOPRIM PO SCH (08:34)
[2020-01-06] MEDS: HYZAAR 50/12.5 MG PO SCH ×2 (08:34→21:18)
[2020-01-06] MEDS: MIRALAX POWDER (1 DOSE 17 G) PO SCH (08:35)
[2020-01-06] MEDS: TOPROL XL PO SCH (08:35)
[2020-01-06] MEDS: TUSSIONEX PENNKINETIC SUSP PO SCH (09:02)
[2020-01-06] MEDS: LASIX IVP SCH (09:02)
[2020-01-06] MEDS: ROBITUSSIN DM PO SCH (09:02)
[2020-01-06] MEDS: LOVENOX INJ 40 MG SYR SC SCH (09:02)
[2020-01-06] MEDS: DUONEB 0.5 MG/3 MG (3 mL) NEB SCH ×4 (09:07→21:55)
[2020-01-06] MEDS: PULMICORT NEB TX 0.5 MG NEB SCH ×2 (09:07→21:55)
[2020-01-06] MEDS ORDERED: ROBITUSSIN DM PO PRN (11:23)
[2020-01-06] MEDS ORDERED: TUSSIONEX PENNKINETIC SUSP PO PRN (11:23)
--- NOTE | 2020-01-06 19:07 | PCM.PROG ---
Progress Note - Progress Note for Day of Date of Exam: 01/06/20 - Subjective Subjective: IS BEING TREATED FOR PNEUMONIA DUE TO COVID-19. TODAY, SHE IS ALERT AND ORIENTED, LYING IN BED ON MORNING ROUNDS. SHE CONTINUES WITH COMPLAINTS OF SHORTNESS OF BREATH AT TIMES. SHE ALSO REPORTS FEELING ANXIOUS, NO SO MUCH THIS MORNING BUT MORE THROUGHOUT THE NIGHT. SHE IS CURRENTLY SITTING UP IN BED, UTILIZING OXYGEN VIA NASAL CANNULA AT 5 LITERS/MIN. SHE REPORTS THAT SHE DOES NOT FEEL SHORT OF BREATH WHILE SPEAKING OR AMBULATING THIS MORNING. SHE DID UTILIZED HEATED HIGH FLOW THROUGHOUT THE NIGHT, WHILE SLEEPING. ON EXAMINATION, HEART IS REGULAR IN RATE AND RHYTHM. BILATERAL LUNGS ARE NOTED WITH SCATTERED WHEEZING THROUGHOUT. ABDOMEN IS ROUND, SOFT, AND NON-TENDER WITH NORMAL BOWEL SOUNDS NOTED IN ALL QUADRANTS. HER VITALS THIS MORNING ARE: 97.0-86-26-91%NC-128/68. LABS WERE OBTAINED. ABNORMAL LAB VALUES INCLUDE THE FOLLOWING: SODIUM 132, CHLORIDE 94, CARBON DIOXIDE 33.8, BUN 23, GLUCOSE 267, CALCIUM 8.1, AST 14, TOTAL PROTEIN 6.1, ALBUMIN 2.5. AN ABG WAS OBTAINED THIS MORNING AND REVEALED: PH 7.570, PC02 40, P02 51, HC03 36.6, 02 SAT 91, BASE EXCESS 13.3, A-a GRADIENT 184, FI02 40. A CHEST XRAY WAS OBTAINED AND REVEALED: Cardiac and mediastinal contours are stable. Stable multifocal bilateral airspace disease worse on the left. No definite pleural effusion or pneumothorax. SHE IS CURRENTLY RECEIVING LEVAQUIN 750MG IV DAILY, ROCEPHIN 1G IV DAILY, , SOLU-MEDROL 80MG IV Q12H, DUONEBS QID, PULMICORT NEBS BID, TUSSIONEX 5ML PO Q12H PRN, ROBITUSSIN DM 10 ML PO QID, LASIX 20MG IV DAILY, THE POTASSIUM AND MAGNESIUM PROTOCOLS, HUMULIN R SLIDING SCALE, AND HER HOME MEDICATIONS WERE RESUMED. WE WILL CONTINUE WITH CURRENT PLAN OF CARE TODAY. OTHERWISE, WE PLAN TO FOLLOW UP WITH AM LABS, CHEST XRAY, ABG, AND CONTINUE TO MONITOR. - Past Medical Family Social History Past Med/Fam/Surg Hx: No changes since H&P Allergies: Allergies Penicillins Allergy (Verified 12/24/19 21:21) - Review of Systems ROS: No change since H&P - Vital Signs and I&O's Vital Signs: Temperature 98.0 F Pulse Rate 100 Respiratory Rate 28 Blood Pressure 128/72 O2 Sat by Pulse Oximetry 89 Intake and Output: Intake & Output 01/04/20 01/05/20 01/06/20 01/07/20 11:59 11:59 11:59 11:59 Intake Total 1900 / 1900 1782 / 1782 1458 / 1458 480 / 480 Output Total 2950 / 2950 2600 / 2600 2825 / 2825 1300 / 1300 Balance -1050 / -1050 -818 / -818 -1367 / -1367 -820 / -820 - Physical Exam Oriented: Normal Eyes: Normal Ear: Normal Nose: Normal Throat: Normal Respiratory: Generalized, Diminished Cardiovascular: Normal : Normal Auscultation: Bowel Sounds: Normal Palpation: Normal Tenderness: Normal Skin: Normal Musculoskeletal: Normal Psychiatric: Normal Mood Description: Calm Affect: Normal Speech Pattern: Clear, Appropriate - Laboratory and Diagnostics Result Diagrams: 01/06/20 04:40 01/06/20 04:40 Labs: 12/24/19 21:38 Blood Blood Culture - Final 12/24/19 21:42 Blood Blood Culture - Final 12/27/19 19:58 Sputum - Expectorated Sputum Sputum Culture - Final 12/27/19 19:58 Sputum - Expectorated Sputum - Final Laboratory WBC 8.1 X10^3/uL (3.6-10.0) 01/06/20 04:40 RBC 4.34 X10^6/uL (3.5-5.4) 01/06/20 04:40 Hgb 12.6 g/dL (12.0-16.0) 01/06/20 04:40 Hct 38.2 % (36.0-47.0) 01/06/20 04:40 MCV 87.8 fL (80.0-100.0) 01/06/20 04:40 MCH 29.1 pg (27.0-34.0) 01/06/20 04:40 MCHC 33.1 g/dL (33.0-35.0) 01/06/20 04:40 RDW 14.7 % (11.6-16.5) 01/06/20 04:40 Plt Count 191 X10^3/uL (150.0-450.0) 01/06/20 04:40 Plt Count Comment Adequate (ADEQUATE) 12/26/19 04:35 MPV 9.6 fL (7.4-11.0) 01/06/20 04:40 Neut % (Auto) 86.0 % (42.0-75.0) H 01/06/20 04:40 Lymph % (Auto) 11.3 % (21.0-51.0) L 01/06/20 04:40 Bea[place]gard % (Auto) 2.3 % (0.0-13.0) 01/06/20 04:40 Eos % (Auto) 0.0 % (0.9-2.9) L 01/06/20 04:40 Baso % (Auto) 0.4 % (0.2-1.0) 01/06/20 04:40 Neut # (Auto) 6.9 x10^3/uL (2.2-4.8) H 01/06/20 04:40 Lymph # (Auto) 0.9 X10^3/uL (1.3-2.9) L 01/06/20 04:40 [place]gard # (Auto) 0.2 x10^3/uL (0.3-0.8) L 01/06/20 04:40 Eos # (Auto) 0.0 x10^3/uL (0.0-0.2) 01/06/20 04:40 Baso # (Auto) 0.0 X10^3/uL (0.0-0.1) 01/06/20 04:40 Absolute Nucleated RBC 0.1 /100WBC 01/06/20 04:40 Total Counted 100 12/26/19 04:35 Neutrophils % (Manual) 92 % (39-76) H 12/26/19 04:35 Band Neutrophils % 3 % (0-10) 12/26/19 04:35 Lymphocytes % (Manual) 4 % (13-43) L 12/26/19 04:35 Monocytes % (Manual) 1 % (4-9) L 12/26/19 04:35 Plt Morphology Comment Normal (NORMAL) 12/26/19 04:35 RBC Morphology Normal (NORMAL) 12/26/19 04:35 D-Dimer < 0.27 ug/ml (0.0-0.57) 12/28/19 04:50 Sample Site Rrad 01/06/20 07:01 ABG pH 7.570 (7.35-7.45) H* 01/06/20 07:01 ABG pCO2 40.0 mmHg (35.0-45.0) 01/06/20 07:01 ABG pO2 51.0 mmHg (80.0-100.0) L 01/06/20 07:01 ABG HCO3 36.6 mmol/L (22-26) H* 01/06/20 07:01 ABG O2 Saturation 91.0 % (90-100) 01/06/20 07:01 ABG Base Excess 13.3 mmol/L (-2.0-2.0) H 01/06/20 07:01 Fausto Test Pos 01/06/20 07:01 A-a Gradient 184.0 mmHg 01/06/20 07:01 FiO2 40.0 01/06/20 07:01 Blood Gas Comments Judie abg well-mtf 01/06/20 07:01 Sodium 132 mmol/L (136-145) L 01/06/20 04:40 Corrected Sodium 136 mmol/L (136-145) 01/06/20 04:40 Potassium 3.8 mmol/L (3.5-5.1) 01/06/20 04:40 Chloride 94 mmol/L (98-107) L 01/06/20 04:40 Carbon Dioxide 33.8 mmol/L (21-32) H 01/06/20 04:40 BUN 23 mg/dL (7-18) H 01/06/20 04:40 Creatinine 0.67 mg/dL (0.55-1.02) 01/06/20 04:40 Est GFR (MDRD) Af Amer > 60 (>60) 01/06/20 04:40 Est GFR (MDRD) Non-Af > 60 (>60) 01/06/20 04:40 Glucose 267 mg/dL (65-99) H 01/06/20 04:40 POC Glucose (mg/dL) 344 mg/dL (65-99) H 01/06/20 16:06 Calcium 8.1 mg/dL (8.5-10.1) L 01/06/20 04:40 Corrected Calcium 9.3 mg/dL (8.5-10.1) 01/06/20 04:40 Magnesium 2.6 mg/dL (1.7-2.9) 01/01/20 05:05 Ferritin 567 ng/mL (8-252) H 01/01/20 05:05 Total Bilirubin 0.70 mg/dL (0.2-1.0) 01/06/20 04:40 AST 14 Units/L (15-37) L 01/06/20 04:40 ALT 61 Units/L (12-78) 01/06/20 04:40 Alkaline Phosphatase 71 Units/L (46-116) 01/06/20 04:40 C-Reactive Protein 1.50 mg/L (0-3.0) 01/06/20 04:40 B-Natriuretic Peptide 50.8 pg/mL (0-79) 12/27/19 04:35 Total Protein 6.1 g/dL (6.4-8.2) L 01/06/20 04:40 Albumin 2.5 g/dL (3.4-5.0) L 01/06/20 04:40 Globulin 3.6 g/dL (2.5-4.5) 01/06/20 04:40 Albumin/Globulin Ratio 0.7 Ratio (1.1-2.1) L 01/06/20 04:40 Blood Type O POSITIVE 12/24/19 21:42 - Plan (1) Pneumonia due to 2019 novel coronavirus Status: Acute Plan: SUPPLEMENTAL OXYGEN, ANTIBIOTICS, STEROIDS, NEBS/INHALERS (2) COVID-19 Status: Acute (3) Hyperglycemia Status: Acute Plan: MONITOR BS. ON STEROIDS. (4) Hypokalemia Status: Acute Plan: MONITOR POTASSIUM LEVELS. SUPPLEMENT NEEDED. (5) HTN (hypertension) Status: Chronic Qualifiers: Hypertension type: essential hypertension
[2020-01-06] MEDS: COLACE CAP 100 MG PO SCH (21:18)
[2020-01-06] MEDS: XANAX PO PRN (21:21)
[2020-01-06] MEDS: LEVAQUIN PREMIX IV 750 MG 750 MG/150 ML BAG IV SCH (23:00)
[2020-01-07] MEDS: HumuLIN R SC PRN ×2 (05:15→12:06)
[2020-01-07 05:28] LABS: ALANINE AMINOTRANSFERASE 53 Units/L (12-78); ALBUMIN 2.4 g/dL (3.4-5.0); ALKALINE PHOSPHATASE 78 Units/L (46-116); ASPARTATE AMINO TRANSFERASE 17 Units/L (15-37); BLOOD UREA NITROGEN 28 mg/dL (7-18); CARBON DIOXIDE 34.4 mmol/L (21-32); CHLORIDE 93 mmol/L (98-107); COR CA(FOR HYPOALB) 9.3 mg/dL (8.5-10.1); COR NA(FOR HYPERGLY) 137 mmol/L (136-145); CREATININE 0.88 mg/dL (0.55-1.02); SODIUM 131 mmol/L (136-145); eGFR NON BLACK RACES > 60 (>60)
[2020-01-07 05:57] LABS: ABG BASE EXCESS 13.3 mmol/L (-2.0-2.0); ABG HCO3 37.6 mmol/L (22-26)
[2020-01-07 05:58] LABS: ABG ALLEN TEST POS
--- NOTE | 2020-01-07 06:46 | RAD ---
HISTORYSOBSTUDYCHEST, 1 [id number] view of the chestFINDINGSCardiac silhouette appears similar to prior and is mostly obscured on the left. Stable left worse than right lung airspace disease. No definite pleural effusion or pneumothorax.IMPRESSIONNo significant change.Electronically signed by: Martínez Lomas (Jan 07, 2020 06:44:38)
[2020-01-07 06:54] LABS: BASOPHILS % (AUTO) 0.2 % (0.2-1.0); HEMATOCRIT 37.9 % (36.0-47.0); HEMOGLOBIN 12.7 g/dL (12.0-16.0); LYMPHOCYTES # (AUTO) 1.1 X10^3/uL (1.3-2.9); LYMPHOCYTES % (AUTO) 12.6 % (21.0-51.0); MEAN CORPUSCULAR HEMOGLOBIN 29.2 pg (27.0-34.0); MEAN CORPUSCULAR HGB CONC 33.4 g/dL (33.0-35.0); MEAN CORPUSCULAR VOLUME 87.6 fL (80.0-100.0); MEAN PLATELET VOLUME 9.8 fL (7.4-11.0); MONOCYTES # (AUTO) 0.3 x10^3/uL (0.3-0.8); NEUTROPHILS # (AUTO) 7.3 x10^3/uL (2.2-4.8); NEUTROPHILS % (AUTO) 84.2 % (42.0-75.0); PLATELET COUNT 183 X10^3/uL (150.0-450.0); RED BLOOD COUNT 4.33 X10^6/uL (3.5-5.4); RED CELL DISTRIBUTION WIDTH 14.1 % (11.6-16.5); WHITE BLOOD COUNT 8.6 X10^3/uL (3.6-10.0)
[2020-01-07] MEDS: PULMICORT NEB TX 0.5 MG NEB SCH (08:28)
[2020-01-07] MEDS: DUONEB 0.5 MG/3 MG (3 mL) NEB SCH (08:28)
[2020-01-07] MEDS: ROCEPHIN VIAL 1 GRAM 1 G in NS 100 ML IV + SPIKE MINIBAG* 100 ML IV SCH (08:49)
[2020-01-07] MEDS: VSL#3 PO SCH (08:50)
[2020-01-07] MEDS: ASPIRIN 81 MG CHEWTAB PO SCH (08:50)
[2020-01-07] MEDS: SOLU-Medrol 40 MG VIAL IVP SCH (08:51)
[2020-01-07] MEDS: MILK OF MAGNESIA PO SCH (08:51)
[2020-01-07] MEDS: PROTONIX INJ 40 MG VIAL IVP SCH (08:51)
[2020-01-07] MEDS: LASIX IVP SCH (08:51)
[2020-01-07] MEDS: ZYLOPRIM PO SCH (08:52)
[2020-01-07] MEDS: TOPROL XL PO SCH (08:52)
[2020-01-07] MEDS: OLOPATADINE SCH (08:53)
[2020-01-07] MEDS: HYZAAR 50/12.5 MG PO SCH (08:53)
[2020-01-07] MEDS: LOVENOX INJ 40 MG SYR SC SCH (09:10)
[2020-01-07] MEDS: MIRALAX POWDER (1 DOSE 17 G) PO SCH (09:10)
[2020-01-07] MEDS ORDERED: DULCOLAX SUPPOSITORY 10 MG ONE (10:38)
[2020-01-07] MEDS ORDERED: DULCOLAX SUPPOSITORY 10 MG RECTAL ONE (10:48)
[2020-01-07 13:57] VITALS: BP 124/60
== END 2020-01-07 14:15 | disposition home or self-care (01) | DRG 177 ==
LOC: ICU 20:51
PROVIDERS: ADMIT Internal Medicine; ATTEND Internal Medicine
DX: E11.65 Type 2 diabetes mellitus with hyperglycemia; R79.89 Other specified abnormal findings of blood chemistry; J12.89 Other viral pneumonia; E87.6 Hypokalemia; I10 Essential (primary) hypertension; J96.00 Acute respiratory failure, unspecified whether with hypoxia or hypercapnia; U07.1 COVID-19